=== PATIENT | female | born 1960 | race Caucasian/White ===

== ENCOUNTER → 2016-12-09 | Day surgery (SDC) | payer OTHER ==
[2016-12-01 14:56] VITALS: Ht 154.9 cm; Wt 70.0 kg
[~2016-12-09] VITALS: Ht 154.9 cm; Wt 70.0 kg
[~2016-12-09] MED LIST: AMIT50TA3 PO; ASPI81TA28 PO; ATOR-24 PO; ATROPINE SULFATE 0.1 MG/ML 5ML SYR IV PRN; BUPIVACAINE 0.5 % 5 MG/1 ML PF 10ML VIAL ONE; CEFAZOLIN 1000MG/55 ML D5W IV SCH; CYAN10005 PO; EpHEDrine SULFATE INJ 50 MG/ML AMP IV PRN; FENTANYL CITRATE INJ 50 MCG/1 ML 2 ML VIAL ONE; FLUMAZENIL 0.1 MG/1 ML 10 ML VIAL IV ONE; HYDR-5688 PO; LACTATED RINGER'S 1000ML 1,000 ML IV SCH; LIDOCAINE HCL 1% 20 ML VIAL ONE; LIDOCAINE HCL 2% 2 ML VIAL (20MG/ML) ONE; MIDAZOLAM HCL 1 MG/ML 2ML VIAL ONE; NAPR250T2 PO; OMEP40CA PO; ONDANSETRON INJ 2 MG/ML 2 ML VIAL IV PRN; OXYCODONE/ACETAMINOPHEN 5-325 TAB PO PRN; PROM25TA9 PO; PROPOFOL IV EMULSION 10 MG/ML 20 ML VIAL IV ONE; SODIUM CHLORIDE 0.9% 1000ML 1,000 ML IV SCH
--- NOTE | 2016-12-09 06:42 | History & Physical Bridge - [place] ---
H&P Re-Evaluation Bridge Note: I have examined the patient, reviewed the History & Physical and in the interval since the performance of the History & Physical I have noted the following changes of clinical significance: No changes noted
[2016-12-09 07:15] VITALS: TEMP 36.7
--- NOTE | 2016-12-09 07:15 | [facility] Post Operative Brief Note ---
Immediate Operative Summary Operative Date Dec 09, 2016. Pre-Operative Diagnosis Left Carpal Tunnel Syndrome, Left Ring Trigger Finger Post-Operative Diagnosis Same Procedure(s) Performed Left Carpal Tunnel Release; Left Ring Trigger Finger Release Surgeon Dr. Reuben De Dios Rn Rehabilitation Surgeon(s) Corina Vieira PA-C Estimated Blood Loss 0 Findings ABOVE Specimens None Drains NONE Anesthesia LOCAL IV SEDATION Complication(s) None Disposition
--- NOTE | 2016-12-09 07:19 | Discharge Instructions-SurgCtr ---
Discharge Instructions Visit Reason for Visit: Left Carpal Tunnel Syndrome, Left Ring Trigger Fin Discharge Discharge Diagnosis / Problem: SAME ABOVE Discharge Goals Goal(s): Decrease discomfort, Improve function Activity Recommendations Activity Limitations: as noted below Lifting Limitations: until after follow-up appointment Exercise/Sports Limitations: until after follow-up appointment Shower/Bathe: keep incision dry Anesthesia . Post Anesthesia Instructions: If you have had General Anesthesia or IV Sedation: * Do not drive today. * Resume driving when surgeon permits. * Do not make important decisions or sign legal documents today. * Call surgeon for: 1. Temperature elevations greater than 101 degrees F. 2. Uncontrollable pain. 3. Excessive bleeding. 4. Persistent nausea and vomiting. 5. Medication intolerance (nausea, vomiting or rash). * For nausea and vomiting use only clear liquids such as: tea, soda, bouillon until nausea subsides, then gradually increase diet as tolerated. * If you have any concerns or questions, call your surgeon's office. If physician is unavailable and it is an emergency, call 911 or go to the nearest emergency room. . Instructions / Follow-Up Instructions / Follow-Up MEDICATIONS: * Resume previous medications unless instructed otherwise by your surgeon. * Always take pain medication on a full stomach or with food to avoid upset stomach. * Do not drink alcohol or drive while taking narcotics. * Ibuprofen or Tylenol may be taken if narcotic not needed. SPECIAL CARE INSTRUCTIONS: __ None _X_ Keep extremity elevated and iced x 48 hours; apply ice 20-30 minutes 8-10 times/day. May remove at night. __ Sling __24 hrs/day __ Remove at night __ Shoulder Immobilizer __ 24 hrs/day __ Remove at night _X_ Dressing _X_ Maintain until seen in office, may shower with plastic over site __ Remove dressings in 24-48 hours and then may shower __ Cover incisions with band-aids after showering __ Do not remove steri-strips Call physician if chills or temperature rises above 102 degrees or pain unrelieved by prescribed pain medications at . . Diet Recommendations Home Diet: resume previous diet Procedures Procedures Performed: Left Carpal Tunnel Release; Left Ring Trigger Finger Release Pending Studies Studies pending at discharge: no Medical Emergencies . Who to Call and When: Medical Emergencies: If at any time you feel your situation is an emergency, please call 911 immediately. . Non-Emergent Contact Non-Emergency issues call your: Primary Care Provider . . "Provider Documentation" section prepared by Israel Vieira.
--- NOTE | 2016-12-09 07:30 | OPERATIVE REPORT ---
DATE OF OPERATION: 12/09/2016 PREOPERATIVE DIAGNOSIS: Left carpal tunnel syndrome with left ring finger trigger finger. POSTOPERATIVE DIAGNOSIS: Same. PROCEDURE: Release of transverse carpal ligament, decompression median nerve, left wrist with also release of A1 tima, left ring finger. SURGEON: Dr. De Dios. EMBOSSED OR IMPRESSED LETTERING PAINTER: Israel Vieira PA-C. ANESTHESIOLOGIST: Dr. Stroud. ANESTHESIA: Local with IV sedation. DRAINS: None. COMPLICATIONS: None. CONDITION: The patient tolerated the procedure well and returned to recovery in apparent satisfactory condition. INDICATIONS FOR SURGERY: Annalise is a 56-year-old female who presents with left carpal tunnel complaints and triggering of the ring finger elected to go ahead and proceed with surgery. Procedure, expected outcomes, side effects, and risks were all explained in detail. PROCEDURE: The patient was taken to the OR at which time she was placed supine on operating room table and was prepped and draped in usual sterile fashion for surgery. We exsanguinated the hand and put a forearm tourniquet up to 250 mmHg. We first made a transverse incision over the A1 tima of the ring finger, dissected down with loupe magnification. We divided the A1 tima with the 15 blade and tenotomy scissors. We took the finger through a range of motion, no longer triggering. We irrigated it and closed the incision with 4-0 nylon sutures. Marcaine without epinephrine was placed in the skin edges. Attention was given into the carpal tunnel. The left hand was prepped and draped in the usual sterile fashion for this surgery. The anticipated incision site was infiltrated with 1% Xylocaine. A forearm tourniquet was placed on the arm and tourniquet was placed up to 250 mmHg. Incision was made vertically over the transverse carpal tunnel ligament. Dissection was done down until the palmar fascia was identified and divided with a 15-blade. The transverse carpal ligament was identified and also divided with the 15-blade and upbiting scissors. A small portion of the forearm fascia was divided also. Electrocautery was used to control any areas of bleeding. The nerve was freed up from any scar tissue and adequately decompressed. The wound then was copiously irrigated. It was closed then with interrupted 4-0 nylon sutures. Marcaine without Epinephrine was placed in the skin edges. It was closed in a layered fashion. We placed a sterile dressing of Xeroform, 4 x 4, volar splint, and an Tacho bandage. DISPOSITION: The patient was returned back to the recovery room in apparent satisfactory condition. I attest to the content of the Intraoperative Record and any orders documented therein. Any exceptio ns are noted below.
--- NOTE | 2016-12-09 07:31 | Anesthesia Progress Nt - [facility] ---
Anesthesia Post Op Note Date & Time Dec 09, 2016 at 07:30 Vital Signs Pain Intensity: 0 Vital Signs Past 12 Hours Date Time Temp Pulse Resp B/P Pulse Ox O2 Delivery O2 Flow Rate FiO2 12/09/16 07:15 36.7 82 16 139/89 98 Room Air 12/09/16 06:28 36.9 99 16 174/95 100 Room Air Notes Mental Status: alert / awake / arousable, participated in evaluation Pt Amnestic to Procedure: Yes Nausea / Vomiting: adequately controlled Pain: adequately controlled Airway Patency, RR, SpO2: stable & adequate BP & HR: stable & adequate Hydration State: stable & adequate Anesthetic Complications: no major complications apparent
[2016-12-09 07:41] VITALS: BP 143/88; PULSE 86; O2SAT 98
== END | disposition home or self-care (01) ==
LOC: X.SURG 06:06
PROVIDERS: ATTEND Orthopaedic Surgery
DX: G56.02 Carpal tunnel syndrome, left upper limb (principal); M65.342 Trigger finger, left ring finger; Z98.890 Other specified postprocedural states; Z68.29 Body mass index [BMI] 29.0-29.9, adult

== ENCOUNTER → 2017-02-10 | Day surgery (SDC) | payer OTHER ==
[2017-02-05 09:03] VITALS: Ht 154.9 cm; Wt 70.9 kg
[~2017-02-10] VITALS: Ht 154.9 cm; Wt 70.9 kg
[~2017-02-10] MED LIST changes: -ATOR-24 PO; -CYAN10005 PO; +DEXAMETHASONE SOD INJ 4 MG/ML VIAL ONE; -EpHEDrine SULFATE INJ 50 MG/ML AMP IV PRN; +FENTANYL CITRATE INJ 50 MCG/1 ML 2 ML VIAL IV PRN; -FLUMAZENIL 0.1 MG/1 ML 10 ML VIAL IV ONE; +ONDANSETRON INJ 2 MG/ML 2 ML VIAL ONE
--- NOTE | 2017-02-10 09:09 | [facility] Post Operative Brief Note ---
Immediate Operative Summary Operative Date Feb 10, 2017. Pre-Operative Diagnosis Right Carpal Tunnel Syndrome, Trigger Fingers Right Long And Ring Fingers Post-Operative Diagnosis Same Procedure(s) Performed Right Carpal Tunnel Release, Right Long And Ring Trigger Finger Releases Surgeon Dr. De Dios Churn Driller Surgeon(s) Corina Vieira PA-C Estimated Blood Loss 0 mL Findings ABOVE Specimens None Anesthesia LOCAL IV SEDATION Complication(s) None Disposition
--- NOTE | 2017-02-10 09:12 | Discharge Instructions-SurgCtr ---
Discharge Instructions Date of Service Feb 10, 2017. Visit Reason for Visit: Right Carpal Tunnel, Right Long & Ring Trigger Fin Discharge Discharge Diagnosis / Problem: SAME ABOVE Discharge Goals Goal(s): Decrease discomfort, Improve function Activity Recommendations Activity Limitations: as noted below Lifting Limitations: until after follow-up appointment Exercise/Sports Limitations: until after follow-up appointment Shower/Bathe: keep incision dry Anesthesia . Post Anesthesia Instructions: If you have had General Anesthesia or IV Sedation: * Do not drive today. * Resume driving when surgeon permits. * Do not make important decisions or sign legal documents today. * Call surgeon for: 1. Temperature elevations greater than 101 degrees F. 2. Uncontrollable pain. 3. Excessive bleeding. 4. Persistent nausea and vomiting. 5. Medication intolerance (nausea, vomiting or rash). * For nausea and vomiting use only clear liquids such as: tea, soda, bouillon until nausea subsides, then gradually increase diet as tolerated. * If you have any concerns or questions, call your surgeon's office. If physician is unavailable and it is an emergency, call 911 or go to the nearest emergency room. . Instructions / Follow-Up Instructions / Follow-Up MEDICATIONS: * Resume previous medications unless instructed otherwise by your surgeon. * Always take pain medication on a full stomach or with food to avoid upset stomach. * Do not drink alcohol or drive while taking narcotics. * Ibuprofen or Tylenol may be taken if narcotic not needed. SPECIAL CARE INSTRUCTIONS: __ None _X_ Keep extremity elevated and iced x 48 hours; apply ice 20-30 minutes 8-10 times/day. May remove at night. __ Sling __24 hrs/day __ Remove at night __ Shoulder Immobilizer __ 24 hrs/day __ Remove at night _X_ Dressing _X_ Maintain until seen in office, may shower with plastic over site __ Remove dressings in 24-48 hours and then may shower __ Cover incisions with band-aids after showering __ Do not remove steri-strips Call physician if chills or temperature rises above 102 degrees or pain unrelieved by prescribed pain medications at . . Diet Recommendations Home Diet: resume previous diet Procedures Procedures Performed: Right Carpal Tunnel Release, Right Long And Ring Trigger Finger Releases Pending Studies Studies pending at discharge: no Medical Emergencies . Who to Call and When: Medical Emergencies: If at any time you feel your situation is an emergency, please call 911 immediately. . Non-Emergent Contact Non-Emergency issues call your: Primary Care Provider . . "Provider Documentation" section prepared by Israel Vieira.
[2017-02-10 09:43] VITALS: TEMP 37
--- NOTE | 2017-02-10 09:44 | OPERATIVE REPORT ---
DATE OF OPERATION: 02/10/2017 PREOPERATIVE DIAGNOSES: 1. Right carpal tunnel syndrome. 2. Right long trigger finger. POSTOPERATIVE DIAGNOSES: Same. PROCEDURES: 1. Decompression and median nerve release, transverse carpal ligament, right wrist. 2. Release of A1 tima of right long and right ring fingers. SURGEON: Dr. Elliott De Dios. PACKAGE CHECKER: Israel Vieira PA-C. ANESTHESIOLOGIST: Dr. Coronado. ANESTHESIA: Local with IV sedation. DRAINS: None. COMPLICATIONS: None. CONDITION: The patient tolerated the procedure well and returned to recovery in apparent satisfactory condition. INDICATIONS FOR SURGERY: Annalise is a 56-year-old female who has had right carpal tunnel complaints and triggering of the right long and ring fingers. She would like to go ahead and proceed with surgery to correct these problems. Procedure, expected outcomes, side effects, and risks were all explained in the office. DESCRIPTION OF PROCEDURE: The patient was taken to the OR, at which time she was placed supine on the operating table, put to sleep and given IV sedation by the anesthesia department. Right hand was prepped and draped in usual sterile fashion for surgery. The anticipated incision site was infiltrated with 1% Xylocaine. A forearm tourniquet was placed on the arm and tourniquet was placed up to 250 mmHg. Incision was made vertically over the transverse carpal tunnel ligament. Dissection was done down until the palmar fascia was identified and divided with a 15-blade. The transverse carpal ligament was identified and also divided with the 15-blade and upbiting scissors. A small portion of the forearm fascia was divided also. Electrocautery was used to control any areas of bleeding. The nerve was freed up from any scar tissue and adequately decompressed. I went ahead and made transverse incisions over the A1 pulleys of the long and ring fingers, dissected down with loupe magnification and divided the A1 pulleys. The wound then was copiously irrigated. It was closed then with interrupted 4-0 nylon sutures and then it was incorporated into a postop dressing for the carpal tunnel. Marcaine without Epinephrine was placed in the skin edges. It was closed in a layered fashion. We placed a sterile dressing of Xeroform, 4 x 4, volar splint, and an Tacho bandage. DISPOSITION: The patient was returned back to the recovery room in apparent satisfactory condition. I attest to the content of the Intraoperative Record and any orders documented therein. Any exceptio ns are noted below.
[2017-02-10 10:16] VITALS: BP 143/95; PULSE 91; O2SAT 97
--- NOTE | 2017-02-10 10:26 | Anesthesia Progress Nt - [facility] ---
Anesthesia Post Op Note Date & Time Feb 10, 2017 at 10:26 Vital Signs Pain Intensity: 0 Vital Signs Past 12 Hours Date Time Temp Pulse Resp B/P Pulse Ox O2 Delivery O2 Flow Rate FiO2 02/10/17 10:16 91 16 143/95 97 Room Air 02/10/17 09:43 37.0 90 14 132/88 95 Room Air 02/10/17 09:15 36.8 107 18 154/85 94 Room Air 02/10/17 07:36 37 96 16 145/95 99 Room Air Notes Mental Status: alert / awake / arousable, participated in evaluation Pt Amnestic to Procedure: Yes Nausea / Vomiting: adequately controlled Pain: adequately controlled Airway Patency, RR, SpO2: stable & adequate BP & HR: stable & adequate Hydration State: stable & adequate Anesthetic Complications: no major complications apparent
== END | disposition home or self-care (01) ==
LOC: X.SURG 07:19
PROVIDERS: ATTEND Orthopaedic Surgery
DX: G56.01 Carpal tunnel syndrome, right upper limb (principal); M65.331 Trigger finger, right middle finger; M65.341 Trigger finger, right ring finger; Z98.890 Other specified postprocedural states; Z79.82 Long term (current) use of aspirin; Z68.30 Body mass index [BMI] 30.0-30.9, adult

== ENCOUNTER 2019-08-16 17:23 | Inpatient (IN) ==
[2019-08-16] MEDS ORDERED: SODIUM CHLORIDE 0.9% 1000ML 1,000 ML IV ONE (19:07)
[2019-08-16] MEDS ORDERED: ONDANSETRON INJ 2 MG/ML 2 ML VIAL IV STA (19:07)
--- NOTE | 2019-08-16 19:31 | XRay Report ---
XR chest 1V portable CLINICAL HISTORY: weakness, abd pain COMPARISON STUDY: Chest radiograph April 20, 2018. FINDINGS: Lung volumes are normal. Lungs are clear. There is no pneumothorax or pleural effusion. Car diac size is normal. Mediastinal contours are normal. There is no evidence for pulmonary edema. IMPRESSION: No acute cardiopulmonary findings. Electronically signed by: Darin Boston M.D. 08/16/2019 7:29 PM
[2019-08-16 19:55] LABS: Basophils # (auto) 0.02 K/uL (0-0.2); Basophils % (auto) 0.4 %; Eosinophils # (auto) 0.06 K/uL (0-0.5); Eosinophils % (auto) 1.1 %; Lymphocytes # (auto) 1.89 K/uL (1.2-3.4); Lymphocytes % (auto) 34.1 %; Mean Corpuscular Hemoglobin 29.9 pg (25-34); Mean Corpuscular Hgb Conc 34.8 g/dL (32-36); Mean Corpuscular Volume 85.8 fL (80-100); Mean Platelet Volume 9.3 fL (7.4-10.4); Monocytes % (auto) 7.2 %; Neutrophils # (auto) 3.17 K/uL (1.4-6.5); Neutrophils % (auto) 57.2 %; Platelet Count 178 K/uL (130-400); RDW Standard Deviation 40.6 fL (36.4-46.3); Red Blood Count 5.36 M/uL (4.2-5.4); White Blood Count 5.54 K/uL (4.8-10.8)
[2019-08-16] MEDS: DiphenhydrAMINE HCL 50 MG/ML VIAL IV STA ×2 (19:55→20:15)
[2019-08-16] MEDS ORDERED: CETIRIZINE HCL 10 MG TABLET PO ONE (20:05)
[2019-08-16 20:18] LABS: Alanine Aminotransferase 36 U/L (12-78); Albumin Level 4.1 gm/dl (3.4-5.0); Aspartate Aminotransferase 27 U/L (15-37); BUN Creatinine Ratio 12.3 (10-20); Blood Urea Nitrogen 13 mg/dl (7-18); Calcium 9.9 mg/dl (8.5-10.1); Carbon Dioxide 26 mmol/L (21-32); Chloride 106 mmol/L (98-107); Creatinine Clr Calc Pharmacy 51.2 ml/min; Est GFR (African American) 64.8; Est GFR (Non-African American) 55.9; Glucose 95 mg/dl (70-99); Lipase 70 U/L (73-393); Potassium 3.4 mmol/L (3.5-5.1); Sodium 141 mmol/L (136-145)
[2019-08-16 20:23] LABS: Albumin Globulin Ratio 1.3 (0.9-2); Alkaline Phosphatase 101 U/L (45-117); Bilirubin,Total 0.7 mg/dl (0.2-1); Globulin 3.3 gm/dl (2.5-4.0); Total Protein 7.4 gm/dl (6.4-8.2); Troponin I < 0.015 ng/ml (0-0.045)
[2019-08-16] MEDS ORDERED: IOVERSOL 100ml IV PRN (20:26)
--- NOTE | 2019-08-16 21:15 | CT Scan Report ---
CT OF THE ABDOMEN AND PELVIS WITH CONTRAST CLINICAL HISTORY: Right lower quadrant abdominal pain, nausea and vomiting. COMPARISON STUDY: Abdominal ultrasound October 09, 2016. TECHNIQUE: Following IV administration of 89 mL of Optiray-320, axial images of the abdomen and pelvi s were obtained from the lung bases to the proximal femurs. Images were reviewed in the axial, sagitt al, and coronal planes. IV contrast was administered without complication. Automated exposure contro l was utilized for the study. A dose lowering technique was utilized adhering to the principles of A GENE. CT DOSE: 517.21 mGy.cm FINDINGS: Lung bases are unremarkable. A 3.2 cm cystic lesion within the upper pole of the left kidne y contains a thin septation. This is likely benign. There is probable fatty infiltration of the liver . There is no biliary ductal dilatation status post cholecystectomy. The spleen, adrenal glands and p ancreas are normal. Note is made of a 3 mm left renal calculus. There are no ureteral calculi. No joaquin dence for a bowel obstruction. The tip of the appendix is mildly dilated, measuring 8 mm. There is mi nimal periappendiceal infiltration. There is no free air or abscess. No suspicious osseous lesions ar e present. There is no lymphadenopathy. Major vasculature is patent. IMPRESSION: Findings suggestive of early acute appendicitis. No free air or abscess. Electronically signed by: Darin Boston M.D. 08/16/2019 9:14 PM
[2019-08-16 21:32] LABS: Appearance Urine Clear (Clear); Bacteria Urine Automated Negative (Negative); Bilirubin Urine Negative (Negative); Blood Urine Negative (Negative); Color Urine Yellow; Glucose Urine UA Negative (Negative); Ketones Urine Negative (Negative); Leukocyte Esterase Urine 1+ (Negative); Nitrite Urine Negative (Negative); Protein Urine Negative (Negative); RBC Urine Automated 0-4 /hpf (0-4); Specific Gravity Urine 1.024 (1.000-1.030); Urobilinogen Urine Negative (Negative); pH Urine 6.5 (4.5-7.5)
[2019-08-16] MEDS ORDERED: MoRPHine SULFATE 4 MG/ML 1 ML CARP\\VIAL IV STA (22:49)
[2019-08-16] MEDS ORDERED: D5W AND LACTATED RINGERS 1,000 ML IV SCH (23:00)
[2019-08-16] MEDS: POTASSIUM CHLORIDE 20 MEQ TABCR PO STA ×2 (23:03→23:06)
[2019-08-16] MEDS ORDERED: POTASSIUM CHLORIDE / WTR 10 MEQ/100 ML PLCT IV ONE (23:12)
--- NOTE | 2019-08-16 23:12 | History & Physical Report ---
Date of Service August 16, 2019 Assessment & Plan (1) Abdominal pain: Early appendicitis on CT No sepsis for now. Hypokalemia secondary to transient diarrheal illness hypertension, elevated secondary discomfort and anxiety, currently not on any maintenance medications migraine, stable hx sarcoidosis OBS GMF Surgery consult RE appendicitis (ER provider already in touch with Dr. Jain. No emergent surgical intervention for now.) IV Ertapenem Replace potassium Monitor BP, initiate lisinopril if persistently elevated analgesia, anxiolytic as needed Prophylaxis. SCDs Full code History of Present Illness Chief Complaint: Abdominal pain Primary Care Provider: Elliott Marquis MD History obtained from patient and records. Medical history significant for hypertension, migraine, osteoarthritis, GERD, anxiety, sarcoidosis. Few days history of achy right lower quadrant pain, nausea, anorexia, transient diarrhea, transient hematuria, some chills no fever. No chest pain, S OB. Patient seen at PCP's office. Subsequently directed to the ER for further evaluation. 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 Allergies Allergy/AdvReac Type Severity Reaction Status Date / Time Iodinated Contrast Media Allergy Intermediate ITCHING Verified 08/16/19 19:47 Home Medications Home Medications Medication Instructions Recorded Confirmed Type aspirin 81 mg PO DAILY 08/16/19 08/16/19 History atorvastatin 40 mg PO DAILY 08/16/19 08/16/19 History pantoprazole 40 mg PO BID 08/16/19 08/16/19 History Past Med/Surg History Medical History Stage 3b chronic kidney disease Social History Preferred Language: Uzbek Communication Ability: Effective Mechanical 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: No Beliefs That Will Affect Care: None Current Living Situation: Spouse Other Information That Helps Us Care for You: No Feels Safe at Home: Yes Safety Concerns: Feels Safe At This Time Smoking Status: Never smoker Do You Dip or Chew Tobacco: No ; Second Hand Exposure: No ; Tobacco Cessation Education Requested by Patient: No Hx Alcohol Use: No Hx Substance Use: No Review of Systems Review of Systems: As per HPI, all 10 systems reviewed, all other ROS negative Physical Exam Physical Exam: GENERAL: Slightly anxious, slightly uncomfortable, obese, no respiratory distress SKIN: Normal color, warm HEENT: Bespectacled, [place] palpebral conjunctivae, no ptosis, dry buccal mucosa NECK : Supple, no tenderness CHEST : CTA, no tenderness HEART : RRR, no obvious murmurs ABDOMEN: Some distention, RLQ tenderness EXTREMITIES : No LE swelling/tenderness, no other conspicuous deformities noted NEUROLOGIC : Coherent, no facial asymmetry, no other gross focality Results & Data Vital Signs (Past 12 Hours) Vital Signs Temp Pulse Pulse Resp BP BP Pulse Ox 08/16/19 22:34 83 18 165/97 H 99 08/16/19 20:15 89 18 162/87 H 99 08/16/19 19:17 86 16 159/86 H 98 08/16/19 17:44 36.7 C 97 H 18 172/112 H 99 Laboratory Results Laboratory Results WBC 5.54 K/uL (4.8-10.8) 08/16/19 19:09 RBC 5.36 M/uL (4.2-5.4) 08/16/19 19:09 Hgb 16.0 g/dL (12.0-16.0) 08/16/19 19:09 Hct 46.0 % (37-47) 08/16/19 19:09 MCV 85.8 fL (80-100) 08/16/19 19:09 MCH 29.9 pg (25-34) 08/16/19 19:09 MCHC 34.8 g/dL (32-36) 08/16/19 19:09 RDW Std Deviation 40.6 fL (36.4-46.3) 08/16/19 19:09 RDW Coeff of Charis 13.0 % (11.5-14.5) 08/16/19 19: Plt Count 178 K/uL (130-400) 08/16/19 19:09 MPV 9.3 fL (7.4-10.4) 08/16/19 19:09 Immature Gran % (Auto) 0.0 % 08/16/19 19:09 Neut % (Auto) 57.2 % 08/16/19 19:09 Lymph % (Auto) 34.1 % 08/16/19 19:09 [place] % (Auto) 7.2 % 08/16/19 19:09 Eos % (Auto) 1.1 % 08/16/19 19:09 Baso % (Auto) 0.4 % 08/16/19 19:09 Immature Gran # (Auto) 0.00 K/uL (0.00-0.02) 08/16/19 19:09 Neut # (Auto) 3.17 K/uL (1.4-6.5) 08/16/19 19:09 Lymph # (Auto) 1.89 K/uL (1.2-3.4) 08/16/19 19:09 [place] # (Auto) 0.40 K/uL (0.11-0.59) 08/16/19 19:09 Eos # (Auto) 0.06 K/uL (0-0.5) 08/16/19 19:09 Baso # (Auto) 0.02 K/uL (0-0.2) 08/16/19 19:09 Sodium 141 mmol/L (136-145) 08/16/19 19:09 Potassium 3.4 mmol/L (3.5-5.1) L 08/16/19 19:09 Chloride 106 mmol/L (98-107) 08/16/19 19:09 Carbon Dioxide 26 mmol/L (21-32) 08/16/19 19:09 Anion Gap 9.0 (3-11) 08/16/19 19:09 BUN 13 mg/dl (7-18) 08/16/19 19:09 Creatinine 1.09 mg/dl (0.6-1.2) 08/16/19 19:09 Est Cr Clr Drug Dosing 51.2 ml/min 08/16/19 19:09 Est GFR ( Amer) 64.8 08/16/19 19:09 Est GFR (Non-Af Amer) 55.9 08/16/19 19:09 BUN/Creatinine Ratio 12.3 (10-20) 08/16/19 19:09 Glucose 95 mg/dl (70-99) 08/16/19 19:09 Calcium 9.9 mg/dl (8.5-10.1) 08/16/19 19:09 Total Bilirubin 0.7 mg/dl (0.2-1) 08/16/19 19:09 AST 27 U/L (15-37) 08/16/19 19:09 ALT 36 U/L (12-78) 08/16/19 19:09 Alkaline Phosphatase 101 U/L (45-117) 08/16/19 19:09 Troponin I < 0.015 ng/ml (0-0.045) 08/16/19 19:09 Troponin I Cancelled 08/16/19 19:09 Total Protein 7.4 gm/dl (6.4-8.2) 08/16/19 19:09 Albumin 4.1 gm/dl (3.4-5.0) 08/16/19 19:09 Globulin 3.3 gm/dl (2.5-4.0) 08/16/19 19:09 Albumin/Globulin Ratio 1.3 (0.9-2) 08/16/19 19:09 Lipase 70 U/L (73-393) L 08/16/19 19:09 Urine Color Yellow 08/16/19 20:45 Urine Appearance Clear (Clear) 08/16/19 20:45 Urine pH 6.5 (4.5-7.5) 08/16/19 20:45 Ur Specific [place] 1.024 (1.000-1.030) 08/16/19 20:45 Urine Protein Negative (Negative) 08/16/19 20:45 Urine Glucose (UA) Negative (Negative) 08/16/19 20:45 Urine Ketones Negative (Negative) 08/16/19 20:45 Urine Blood Negative (Negative) 08/16/19 20:45 Urine Nitrite Negative (Negative) 08/16/19 20:45 Urine Bilirubin Negative (Negative) 08/16/19 20:45 Urine Urobilinogen Negative (Negative) 08/16/19 20:45 Ur Leukocyte Esterase 1+ (Negative) H 08/16/19 20:45 Urine WBC (Auto) 1-5 /hpf (0-5) 08/16/19 20:45 Urine RBC (Auto) 0-4 /hpf (0-4) 08/16/19 20:45 U Hyaline Cast (Auto) 1-5 /lpf (0-5) 08/16/19 20:45 U Epithel Cells (Auto) 10-20 /lpf (0-5) H 08/16/19 20:45 Urine Bacteria (Auto) Negative (Negative) 08/16/19 20:[address] abdomen pelvis: Findings suggestive of early acute appendicitis. No free air or abscess. Chest x-ray : No acute cardiopulmonary findings EKG as per my interpretation : Rate 80, NSR, normal axis, incomplete RBBB, T wave flattening inferior and anteroseptal leads (1) Abdominal pain Abdominal location: unspecified location Qualified Code(s): R10.9 - Unspecified abdominal pain
[2019-08-16 23:14] LABS: Magnesium 2.2 mg/dl (1.8-2.4)
[2019-08-16] MEDS ORDERED: ERTAPENEM SODIUM 10 ML IV STA (23:23)
--- NOTE | 2019-08-17 00:24 | Emergency Department Note ---
Entered by Annalise Carpenter acting as a scribe for Salvador Garcia M.D. History of Present Illness General Chief complaint: Abdominal Pain Stated complaint: RLQ PAIN, NAUSEA, DIARRHEA History of Present Illness Provider complaint: right sided abdominal pain Onset (ago): day(s) 3 Location: abdomen and right Pain Consistency: + other (worsening) Maximum Pain Intensity: 9 Associated symptoms: + denies other symptoms (vomiting, recent travel, sick contact, falls, recent antibiotics use), + fever/chills (up to 102 F) and + other (diarrhea which has caused her to lose 15lbs, nausea, ); no chest pain and no cough Treatments prior to arrival: none The patient is a 59 year old female who presents to the ED with complaints of worsening right sided abdominal pain that started 3 days ago. The patient states that she has been having fevers that have gotten as high as 102 F. The patient states that she is nauseas and has been having diarrhea. The patient notes that she has lost 15 lbs secondary to the diarrhea. The patient denies cough, chest pain, recent travel, sick contact, vomiting, falls, and recent antibiotic use. The patient denies receiving any treatments prior to arrival. Home Medications Home Medications Medication Instructions Recorded Confirmed Type aspirin 81 mg PO DAILY 08/16/19 08/16/19 History atorvastatin 40 mg PO DAILY 08/16/19 08/16/19 History pantoprazole 40 mg PO BID 08/16/19 08/16/19 History Allergies Allergy/AdvReac Type Severity Reaction Status Date / Time Iodinated Contrast Media Allergy Intermediate ITCHING Verified 08/16/19 19:47 Past Med/Surg History Medical History Stage 3b chronic kidney disease Social History Preferred Language: Palestinian Feels Safe at Home: Yes Smoking Status: Never smoker Review of Systems See HPI for pertinent positives & negatives. and A total of 10 systems reviewed and were otherwise negative Physical Exam Vital Signs Vital Signs - 24 hr 08/16/19 17:44 08/16/19 19:17 08/16/19 19:18 Temperature 36.7 C Temperature Source Oral Sepsis Recent Fever Within 48 Hours No Sepsis New/Unexplained Change in Mental Status No Sepsis Action Taken by Nursing No Action Required Pulse Rate 97 H Pulse Rate [Apical] 86 Respiratory Rate 18 16 Respiratory Effort / Characteristics Non-Labored Spontaneous Non-Labored Spontaneous Respiratory Depth Normal Normal Respiratory Pattern Regular Blood Pressure 172/112 H Blood Pressure [Left Arm] 159/86 H Blood Pressure Mean 132 Blood Pressure Mean [Left Arm] 110 Blood Pressure Position Sitting Blood Pressure Position [Left Arm] Pulse Oximetry 99 98 Oxygen Delivery Method Room Air Room Air Room Air 08/16/19 20:15 08/16/19 22:34 08/17/19 00:09 Temperature 36.8 C Temperature Source Oral Sepsis Recent Fever Within 48 Hours Sepsis New/Unexplained Change in Mental Status Sepsis Action Taken by Nursing Pulse Rate Pulse Rate [Apical] 89 83 85 Respiratory Rate 18 18 18 Respiratory Effort / Characteristics Non-Labored Spontaneous Non-Labored Spontaneous Non-Labored Spontaneous Respiratory Depth Normal Normal Normal Respiratory Pattern Regular Regular Regular Blood Pressure Blood Pressure [Left Arm] 162/87 H 165/97 H 147/95 H Blood Pressure Mean Blood Pressure Mean [Left Arm] 112 119 112 Blood Pressure Position Blood Pressure Position [Left Arm] Lying Lying Lying Pulse Oximetry 99 99 99 Oxygen Delivery Method Room Air Room Air Room Air 08/17/19 00:19 Temperature Temperature Source Sepsis Recent Fever Within 48 Hours Sepsis New/Unexplained Change in Mental Status Sepsis Action Taken by Nursing Pulse Rate Pulse Rate [Apical] Respiratory Rate Respiratory Effort / Characteristics Respiratory Depth Respiratory Pattern Blood Pressure Blood Pressure [Left Arm] Blood Pressure Mean Blood Pressure Mean [Left Arm] Blood Pressure Position Blood Pressure Position [Left Arm] Pulse Oximetry Oxygen Delivery Method Room Air GENERAL: Awake, alert, uncomfortable-appearing on litter HENT: Normocephalic, atraumatic. EYES: Normal conjunctiva. Sclera non-icteric. NECK: Supple. No nuchal rigidity. RESPIRATORY: Clear to auscultation. Normal respiratory effort. CARDIAC: Normal rate. Normal rhythm. Extremities warm and well perfused. GI: Soft, non-distended. Moderate right sided abdominal tenderness to palpation to R flank. No masses. RECTAL: Deferred. MUSCULOSKELETAL: Atraumatic. Chest examination reveals no tenderness. LOWER EXTREMITIES: Calves are equal size bilaterally and non-tender. NEURO: Normal sensorium. No sensory or motor deficits noted. No facial droop. SKIN: Warm and dry. No rash or jaundice noted. Course 1904: Past medical records reviewed. The patient was evaluated in room B11. A complete history and physical exam was performed. 2133: I updated the patient on the test results. I informed her on the plan for admission and she verbally agrees and understands. 2153: I discussed the patient's case with Dr. Fred Gomez. He will evaluate the patient's current condition. 0: I discussed the patient's case with [facility]. He will evaluate the patient for further management. Consultations Consultation #1: I discussed the patient's case with Dr. Fred Gomez. He will evaluate the patient's current condition. Time: 21:54 Consultation #2: I discussed the patient's case with [facility]. He will evaluate the patient for further management. Time: 22:20 Administered Medications Ioversol (Optiray 320 100ml) 91 ml IV ONCE PRN PRN Reason: Interaction Checking Stop: 08/20/19 20:25 Last Admin: 08/16/19 20:27 Dose: 91 ml Documented by: [id number] Discontinued Medications Cetirizine HCl (Zyrtec) 10 mg PO NOW ONE Stop: 08/16/19 20:06 Last Admin: 08/16/19 20:15 Dose: 10 mg Documented by: [id number] Diphenhydramine HCl (Benadryl) 25 mg IV NOW STA Stop: 08/16/19 19:08 Last Admin: 08/16/19 20:15 Dose: Not Given Documented by: [id number] Sodium Chloride (Nss 1000ml) 1,000 mls @ 999 mls/hr IV .Q1H1M ONE Stop: 08/16/19 20:07 Last Infusion: 08/16/19 21:08 Dose: 0 mls/hr Documented by: [id number] Admin: 08/16/19 19:55 Dose: 999 mls/hr Documented by: [id number] Potassium Chloride (K Sherwin / Wtr) 10 meq in 100 mls @ 100 mls/hr IV ONE ONE Stop: 08/17/19 00:11 Last Admin: 08/16/19 23:28 Dose: 100 mls/hr Documented by: [id number] Morphine Sulfate (Morphine Sulfate) 4 mg IV NOW STA Stop: 08/16/19 22:50 Last Admin: 08/16/19 23:03 Dose: 4 mg Documented by: [id number] Ondansetron HCl (Zofran) 4 mg IV NOW STA Stop: 08/16/19 19:08 Last Admin: 08/16/19 19:55 Dose: 4 mg Documented by: [id number] Potassium Chloride (Klor-Con M20) 40 meq PO NOW STA Stop: 08/16/19 22:20 Last Admin: 08/16/19 23:06 Dose: Not Given Documented by: [id number] Medical Decision Making Differential Diagnosis Differential diagnosis: Etiologies such as biliary colic, cholecystitis, hepatitis, perihepatitis, pancreatitis, cardiac disease, pancreatitis, gastritis, peptic ulcer disease, appendicitis, ovarian cyst, ovarian torsion, ectopic , pelvic inflammatory disease, cystitis, diverticulitis, mesenteric ischemia, inflammatory bowel disease, ileus, bowel obstruction, aortic pathology, shingles, as well as others were considered. Medical Records Attestation: I reviewed the patient's medical records. Home Medications Current Medication List: was personally reviewed by me Laboratory Data Attestation: I reviewed the patient's lab results. Result diagrams: 08/16/19 19:09 08/16/19 19:09 Lab Results 08/16/19 08/16/19 08/16/19 Range/Units 19:09 19:09 19:09 WBC 5.54 (4.8-10.8) K/uL RBC 5.36 (4.2-5.4) M/uL Hgb 16.0 (12.0-16.0) g/dL Hct 46.0 (37-47) % MCV 85.8 (80-100) fL MCH 29.9 (25-34) pg MCHC 34.8 (32-36) g/dL RDW Std Deviation 40.6 (36.4-46.3) fL RDW Coeff of Charis 13.0 (11.5-14.5) % Plt Count 178 (130-400) K/uL MPV 9.3 (7.4-10.4) fL Immature Gran % (Auto) 0.0 % Neut % (Auto) 57.2 % Lymph % (Auto) 34.1 % [place] % (Auto) 7.2 % Eos % (Auto) 1.1 % Baso % (Auto) 0.4 % Immature Gran # (Auto) 0.00 (0.00-0.02) K/uL Neut # (Auto) 3.17 (1.4-6.5) K/uL Lymph # (Auto) 1.89 (1.2-3.4) K/uL [place] # (Auto) 0.40 (0.11-0.59) K/uL Eos # (Auto) 0.06 (0-0.5) K/uL Baso # (Auto) 0.02 (0-0.2) K/uL Sodium 141 (136-145) mmol/L Potassium 3.4 L (3.5-5.1) mmol/L Chloride 106 (98-107) mmol/L Carbon Dioxide 26 (21-32) mmol/L Anion Gap 9.0 (3-11) BUN 13 (7-18) mg/dl Creatinine 1.09 (0.6-1.2) mg/dl Est Cr Clr Drug Dosing 51.2 ml/min Est GFR ( Amer) 64.8 Est GFR (Non-Af Amer) 55.9 BUN/Creatinine Ratio 12.3 (10-20) Glucose 95 (70-99) mg/dl Calcium 9.9 (8.5-10.1) mg/dl Magnesium 2.2 (1.8-2.4) mg/dl Total Bilirubin 0.7 (0.2-1) mg/dl AST 27 (15-37) U/L ALT 36 (12-78) U/L Alkaline Phosphatase 101 (45-117) U/L Troponin I < 0.015 Cancelled (0-0.045) ng/ml Total Protein 7.4 (6.4-8.2) gm/dl Albumin 4.1 (3.4-5.0) gm/dl Globulin 3.3 (2.5-4.0) gm/dl Albumin/Globulin Ratio 1.3 (0.9-2) Lipase 70 L (73-393) U/L Urine Color Urine Appearance (Clear) Urine pH (4.5-7.5) Ur Specific [place] (1.000-1.030) Urine Protein (Negative) Urine Glucose (UA) (Negative) Urine Ketones (Negative) Urine Blood (Negative) Urine Nitrite (Negative) Urine Bilirubin (Negative) Urine Urobilinogen (Negative) Ur Leukocyte Esterase (Negative) Urine WBC (Auto) (0-5) /hpf Urine RBC (Auto) (0-4) /hpf U Hyaline Cast (Auto) (0-5) /lpf U Epithel Cells (Auto) (0-5) /lpf Urine Bacteria (Auto) (Negative) 08/16/19 Range/Units 20:45 WBC (4.8-10.8) K/uL RBC (4.2-5.4) M/uL Hgb (12.0-16.0) g/dL Hct (37-47) % MCV (80-100) fL MCH (25-34) pg MCHC (32-36) g/dL RDW Std Deviation (36.4-46.3) fL RDW Coeff of Charis (11.5-14.5) % Plt Count (130-400) K/uL MPV (7.4-10.4) fL Immature Gran % (Auto) % Neut % (Auto) % Lymph % (Auto) % [place] % (Auto) % Eos % (Auto) % Baso % (Auto) % Immature Gran # (Auto) (0.00-0.02) K/uL Neut # (Auto) (1.4-6.5) K/uL Lymph # (Auto) (1.2-3.4) K/uL [place] # (Auto) (0.11-0.59) K/uL Eos # (Auto) (0-0.5) K/uL Baso # (Auto) (0-0.2) K/uL Sodium (136-145) mmol/L Potassium (3.5-5.1) mmol/L Chloride (98-107) mmol/L Carbon Dioxide (21-32) mmol/L Anion Gap (3-11) BUN (7-18) mg/dl Creatinine (0.6-1.2) mg/dl Est Cr Clr Drug Dosing ml/min Est GFR ( Amer) Est GFR (Non-Af Amer) BUN/Creatinine Ratio (10-20) Glucose (70-99) mg/dl Calcium (8.5-10.1) mg/dl Magnesium (1.8-2.4) mg/dl Total Bilirubin (0.2-1) mg/dl AST (15-37) U/L ALT (12-78) U/L Alkaline Phosphatase (45-117) U/L Troponin I (0-0.045) ng/ml Total Protein (6.4-8.2) gm/dl Albumin (3.4-5.0) gm/dl Globulin (2.5-4.0) gm/dl Albumin/Globulin Ratio (0.9-2) Lipase (73-393) U/L Urine Color Yellow Urine Appearance Clear (Clear) Urine pH 6.5 (4.5-7.5) Ur Specific [place] 1.024 (1.000-1.030) Urine Protein Negative (Negative) Urine Glucose (UA) Negative (Negative) Urine Ketones Negative (Negative) Urine Blood Negative (Negative) Urine Nitrite Negative (Negative) Urine Bilirubin Negative (Negative) Urine Urobilinogen Negative (Negative) Ur Leukocyte Esterase 1+ H (Negative) Urine WBC (Auto) 1-5 (0-5) /hpf Urine RBC (Auto) 0-4 (0-4) /hpf U Hyaline Cast (Auto) 1-5 (0-5) /lpf U Epithel Cells (Auto) 10-20 H (0-5) /lpf Urine Bacteria (Auto) Negative (Negative) Imaging Data Radiologist's Impression: Radiology results as stated below per my review and the radiologist's interpretation: XR chest 1V portable CLINICAL HISTORY: weakness, abd pain COMPARISON STUDY: Chest radiograph April 20, 2018. FINDINGS: Lung volumes are normal. Lungs are clear. There is no pneumothorax or pleural effusion. Cardiac size is normal. Mediastinal contours are normal. There is no evidence for pulmonary edema. IMPRESSION: No acute cardiopulmonary findings. Electronically signed by: Darin Boston M.D. 08/16/2019 7:[address] OF THE ABDOMEN AND PELVIS WITH CONTRAST CLINICAL HISTORY: Right lower quadrant abdominal pain, nausea and vomiting. COMPARISON STUDY: Abdominal ultrasound October 09, 2016. TECHNIQUE: Following IV administration of 89 mL of Optiray-320, axial images of the abdomen and pelvis were obtained from the lung bases to the proximal femurs. Images were reviewed in the axial, sagittal, and coronal planes. IV contrast was administered without complication. Automated exposure control was utilized for the study. A dose lowering technique was utilized adhering to the principles of ALARA. CT DOSE: 517.21 mGy.cm FINDINGS: Lung bases are unremarkable. A 3.2 cm cystic lesion within the upper pole of the left kidney contains a thin septation. This is likely benign. There is probable fatty infiltration of the liver. There is no biliary ductal dilatation status post cholecystectomy. The spleen, adrenal glands and pancreas are normal. Note is made of a 3 mm left renal calculus. There are no ureteral calculi. No evidence for a bowel obstruction. The tip of the appendix is mildly dilated, measuring 8 mm. There is minimal periappendiceal infiltration. There is no free air or abscess. No suspicious osseous lesions are present. There is no lymphadenopathy. Major vasculature is patent. IMPRESSION: Findings suggestive of early acute appendicitis. No free air or abscess. Electronically signed by: Darin Boston M.D. 08/16/2019 9:14 PM ECG Data Attestation: I personally reviewed and interpreted this ECG as follows: Indication: abdominal pain Rate (beats per minute): 82 Rhythm: normal sinus Findings: + other (nonspecific T-wave changes); no PVC and no ST elevation Blood Pressure Blood Pressure Findings: Elevated blood pressure Blood Pressure Disposition: further management by hospitalist NITIN Narrative Patient is a 59-year-old female with a past medical history including CKD and prior cholecystectomy presenting to the emergency department today referred by her primary care provider complaining of right abdominal pain with nausea fever and fatigue since Thursday. Afebrile upon arrival here. Hypertensive. No sick contacts. Significant amount of diarrhea noted. No recent antibiotics. Stool culture and C. difficile testing ordered. Basic labs are completed without evidence of acute hepatitis pancreatitis. EKG and chest x-ray as well as troponin without signs of acute cardiac injury evidence of pneumonia pneumothorax. Doubt dissection. Doubt PE. No evidence of nephrolithiasis on CT. Prior cholecystectomy. No evidence of acute pancreatitis or hepatitis. CT abdomen pelvis completed IV contrast with some Zyrtec to help with symptoms as she did drive here. Given a small amount of fentanyl later for pain. CT scan shows concerning findings for early appendicitis although story is odd. Discussed with general surgery who evaluated the patient. Agree with Dr. Jain's assessment with other clinical history, holding on OR and monito ring overnight in hospital is very reasonable. [facility] hospitalist was alerted. Impression & Plan Diarrhea, Abdominal pain Discharge Plan Visit Data Chief Complaint: Abdominal Pain Stated Complaint: RLQ PAIN, NAUSEA, DIARRHEA ED Provider: Salvador Garcia Discharge Problem: Diarrhea, Abdominal pain Patient Disposition: Being Evaluated by Hospitalist Discharge Instructions Interventions: ED Discharge Assessment Last Done: 08/17/19 00:19 Forms Stand Alone Forms: Call Back Authorization, [employer] Prescriptions Prescriptions: No Action atorvastatin 40 mg tablet 40 mg PO DAILY RF: 0 aspirin 81 mg Tablet,Delayed Release (Dr/Ec) 81 mg PO DAILY RF: 0 pantoprazole 40 mg tablet,delayed release (DR/EC) 40 mg PO BID RF: 0 Referrals Referrals: Elliott Marquis MD [Primary Care Provider] - The scribe's documentation has been prepared under my direction and personally reviewed by me in its entirety. I confirm that the note above accurately reflects all work, treatment, procedures, and medical decision making performed by me.
[2019-08-17] MEDS ORDERED: LORazepam 0.25 MG/0.5 ML VIAL IV PRN (00:51)
[2019-08-17] MEDS ORDERED: PROMETHAZINE HCL 12.5 MG in SODIUM CHLORIDE 0.9% 50 ML IV PRN (00:51)
[2019-08-17] MEDS ORDERED: TRAMADOL HCL 50 MG TABLET PO PRN (00:51)
[2019-08-17] MEDS ORDERED: ACETAMINOPHEN 325 MG TAB PO PRN (00:51)
[2019-08-17] MEDS ORDERED: MoRPHine SULFATE 4 MG/ML 1 ML CARP\\VIAL IV PRN ×2 (00:51→14:46)
[2019-08-17] MEDS ORDERED: TRAMADOL HCL 50 MG TABLET ONE (01:05)
[2019-08-17 05:28] LABS: Basophils # (auto) 0.01 K/uL (0-0.2); Basophils % (auto) 0.2 %; Eosinophils # (auto) 0.07 K/uL (0-0.5); Eosinophils % (auto) 1.4 %; Hemoglobin 14.2 g/dL (12.0-16.0); Lymphocytes % (auto) 45.1 %; Mean Corpuscular Hemoglobin 29.9 pg (25-34); Mean Corpuscular Hgb Conc 34.6 g/dL (32-36); Mean Corpuscular Volume 86.3 fL (80-100); Mean Platelet Volume 9.4 fL (7.4-10.4); Monocytes % (auto) 10.2 %; Neutrophils % (auto) 43.1 %; Platelet Count 165 K/uL (130-400); Red Blood Count 4.75 M/uL (4.2-5.4); White Blood Count 4.88 K/uL (4.8-10.8)
[2019-08-17 05:53] LABS: BUN Creatinine Ratio 10.3 (10-20); Calcium 8.8 mg/dl (8.5-10.1); Creatinine Clr Calc Pharmacy 57.6 ml/min; Est GFR (African American) 74.6; Est GFR (Non-African American) 64.4; Potassium 3.4 mmol/L (3.5-5.1)
--- NOTE | 2019-08-17 06:54 | Surgery Consultation ---
Date of Consultation August 17, 2019 Assessment & Plan (1) Acute abdominal pain in right upper quadrant: At this time I discussed the situation with Dr. Trotter in the ER physician the patient may certainly have us an early appendicitis but given her history which is 4 days long and no real pinpoint tenderness and minimal findings on CAT scan and laboratory I recommended that the patient be admitted and watched. She has not had anything to eat or eat since Thursday she has not had any thing to drink and last 24hours. The plans of therapy were discussed in details with the patient and she is in agreeable there is no family members or significant others at the bedside she said that her went home to go to sleep Present on Admission?: Yes History of Present Illness Reason for Consultation: Was asked to see Annalise by the ER physician laid on 08/16/2019 for findings of possible appendicitis The patient had had a CAT scan which showed an 8 mm appendix with faint so- stranding tissue normal white count The patient's symptoms started on Thursday where she had diarrhea and also experienced some abdominal pain following days with food localized to the right abdomen and right flank she denies any chills or fever Attending Physician: Luis Armando Whalen MD Allergies Allergy/AdvReac Type Severity Reaction Status Date / Time Iodinated Contrast Media Allergy Intermediate ITCHING Verified 08/16/19 19:47 Home Medications Home Medications Medication Instructions Recorded Confirmed Type aspirin 81 mg PO DAILY 08/16/19 08/16/19 History atorvastatin 40 mg PO DAILY 08/16/19 08/16/19 History pantoprazole 40 mg PO BID 08/16/19 08/16/19 History Patient History Medical History Stage 3b chronic kidney disease Social History Preferred Language: Qatari Communication Ability: Effective 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 Required: No Beliefs That Will Affect Care: None Current Living Situation: Spouse Other Information That Helps Us Care for You: No Feels Safe at Home: Yes Safety Concerns: Feels Safe At This Time Smoking Status: Never smoker Do You Dip or Chew Tobacco: No ; Second Hand Exposure: No ; Tobacco Cessation Education Requested by Patient: No Hx Alcohol Use: No Hx Substance Use: No Review of Systems Constitutional: as per Subjective / HPI Eyes: as per Subjective / HPI Cardiovascular: as per Subjective / HPI Gastrointestinal: As stated in the present complaints Physical Exam Constitutional: WD/WN, vitals as above well developed and well nourished Eyes: PERRL, conjunctivae normal, anicteric sclerae ENMT: external ear and nose normal, oropharynx normal Neck: trachea midline, no thyromegaly Respiratory: normal respiratory effort, lungs clear to auscultation Cardiovascular: RRR, no murmur, no edema Gastrointestinal (Abdomen): Abdomen is benign previous scar lower midline hysterectomy trocar sites were lap sukhdev appreciated the abdomen is soft not distended there is no localized tenderness in the right lower quadrant on deep palpation the patient may have more discomfort in the right lower quadrant although it extends more in the right flank area also Results & Data Vital Signs (Past 12 Hours) Vital Signs Temp Pulse Pulse Resp BP Pulse Ox 08/17/19 02:19 71 140/89 08/17/19 00:57 76 180/92 H 08/17/19 00:45 36.6 C 78 18 191/99 H 96 08/17/19 00:09 36.8 C 85 18 147/95 H 99 08/16/19 22:34 83 18 165/97 H 99 08/16/19 20:15 89 18 162/87 H 99 08/16/19 19:17 86 16 159/86 H 98 PG Care Time/CCT Total # of Minutes Spent Total Time Spent with Patient: Total time spent is greater than 50% in coordination of care (as documented) at patient's floor/unit and/or counseling patient:
[2019-08-17] MEDS ORDERED: D5W AND 1/2NSS 1,000 ML IV SCH (07:30)
--- NOTE | 2019-08-17 07:38 | Surgery Progress Note ---
Date of Service August 17, 2019 Assessment & Plan (1) Acute abdominal pain in right upper quadrant: 08/17/19 plan for lap appy possible open since symp for appendicitis increased r and c explained to pt will proceed later this am or early afternoon At this time I discussed the situation with Dr. Trotter in the ER physician the patient may certainly have us an early appendicitis but given her history which is 4 days long and no real pinpoint tenderness and minimal findings on CAT scan and laboratory I recommended that the patient be admitted and watched. She has not had anything to eat or eat since Thursday she has not had any thing to drink and last 24hours. The plans of therapy were discussed in details with the patient and she is in agreeable there is no family members or significant others at the bedside she said that her went home to go to sleep Subjective nauseated and needed something for pain Physical Exam Constitutional: WD/WN, vitals as above Gastrointestinal (Abdomen): pain more localized in rlq tender to deep palpation Results & Data Vital Signs (Past 12 Hours) Vital Signs Temp Pulse Pulse Resp BP Pulse Ox 08/17/19 02:19 71 140/89 08/17/19 00:57 76 180/92 H 08/17/19 00:45 36.6 C 78 18 191/99 H 96 08/17/19 00:09 36.8 C 85 18 147/95 H 99 08/16/19 22:34 83 18 165/97 H 99 08/16/19 20:15 89 18 162/87 H 99 PG Care Time/CCT Total # of Minutes Spent Total Time Spent with Patient: Total time spent is greater than 50% in coordination of care (as documented) at patient's floor/unit and/or counseling patient:
--- NOTE | 2019-08-17 08:10 | Hospitalist Progress Note ---
Date of Service August 17, 2019 Assessment & Plan (1) Abdominal pain: -Early appendicitis on CT -continue empiric Ertapenem -NPO -awaiting for general surgeon for appendectomy Mild Hypokalemia -admission serum potassium is 3.4 -Hypokalemia secondary to transient diarrheal illness Hypertension -elevated secondary to discomfort and anxiety, currently not on any maintenance medications -blood pressure improved by AM of 08/17/19, continue to monitor blood pressures -holding aspirin and statin for now while awaiting surgery History of migraines -no headache currently History of sarcoidosis DVT Prophylaxis: SCDs Full code [id number] Subjective Patient seen and examined around 8 AM. Patient is not in distress. She had received pain medication and tolerating right sided abdominal discomfort. She reports that General Surgeon planning for her to go to the operating room today. no chest pain. no shortness of breath. does not appear to be nauseous at this time. no headache. no dizziness. Physical Exam Constitutional: WD/WN, vitals as above Eyes: PERRL, conjunctivae normal, anicteric sclerae EOM intact bilaterally ENMT: external ear and nose normal, oropharynx normal Neck: normal visual inspection Respiratory: normal respiratory effort, lungs clear to auscultation Cardiovascular: RRR, no murmur, no edema Gastrointestinal (Abdomen): Inspection/Auscultation: normal bowel sounds Percussion/Palpation: abdomen soft Musculoskeletal: Head/Neck/Chest: normocephalic and head atraumatic Neurologic: PERRL, EOMI, accommodation nl, no face palsy, no dysarthria CN's II-XI intact bilaterally Psychiatric: A+Ox3, euthymic affect Results & Data Vital Signs (Past 12 Hours) Vital Signs Temp Pulse Pulse Resp BP Pulse Ox 08/17/19 07:46 36.6 C 68 18 155/97 H 96 08/17/19 02:19 71 140/89 08/17/19 00:57 76 180/92 H 08/17/19 00:45 36.6 C 78 18 191/99 H 96 08/17/19 00:09 36.8 C 85 18 147/95 H 99 08/16/19 22:34 83 18 165/97 H 99 08/16/19 20:15 89 18 162/87 H 99 (1) Abdominal pain Abdominal location: unspecified location Qualified Code(s): R10.9 - Unspecified abdominal pain
[2019-08-17] MEDS: ONDANSETRON INJ 2 MG/ML 2 ML VIAL IV PRN ×2 (08:30→15:28)
[2019-08-17] MEDS ORDERED: ATORVASTATIN 40 MG TAB PO SCH (09:00)
[2019-08-17] MEDS ORDERED: PANTOprazole 40 MG TAB PO SCH (09:00)
[2019-08-17] MEDS ORDERED: ASPIRIN 81 MG ECTAB PO SCH (09:00)
[2019-08-17] MEDS ORDERED: ERTAPENEM CONSULT ACTIVE PRN (09:00)
--- NOTE | 2019-08-17 11:09 | Anesthesiology Consultation ---
Date of Service August 17, 2019 Assessment & Plan (1) Encounter for pre-operative examination: Chart Review Chart Review: Acceptable Risk for Surgery History Surgery Operation Date: 08/17/19 07:00 Proposed Procedures p Laparoscopic Appendectomy - Den Jain MD Height/Weight Height: 5 ft 1 in Weight: 72.7 kg Allergies Allergy/AdvReac Type Severity Reaction Status Date / Time Iodinated Contrast Media Allergy Intermediate ITCHING Verified 08/16/19 19:47 Medications Home Medications Medication Instructions Recorded Confirmed Last Taken aspirin 81 mg PO DAILY 08/16/19 08/16/19 Unknown atorvastatin 40 mg PO DAILY 08/16/19 08/16/19 Unknown pantoprazole 40 mg PO BID 08/16/19 08/16/19 Unknown Active Medications Generic Name Dose Route Start Last Admin Trade Name Freq PRN Reason Stop Dose Admin Dextrose/Sodium Chloride 1,000 mls @ 60 mls/hr 08/17/19 07:30 08/17/19 11:20 D5w And 1/2nss IV 09/16/19 07:29 0 mls/hr .[id number] JASMINE Infusion Morphine Sulfate 4 mg 08/17/19 00:51 08/17/19 08:30 Morphine Sulfate IV 08/31/19 00:50 4 mg Q4H PRN Administration Pain Ondansetron HCl 4 mg 08/17/19 08:13 08/17/19 08:30 Zofran IV 09/16/19 08:12 4 mg Q6H PRN Administration Nausea Tramadol HCl 25 - 50 mg 08/17/19 00:51 08/17/19 06:05 Ultram PO 09/16/19 00:50 50 mg Q4H PRN Administration Pain NPO Date Last Intake of Fluids: 08/17/19 Time Last Intake of Fluids: 00:35 Date Last Intake of Solids: 08/17/19 Time Last Intake of Solids: 00:35 Past Medical History Medical History Stage 3b chronic kidney disease Past Surgical History Surgical History H/O section Hx of fracture of ankle Hx of hysterectomy Social History Smoking Status: Never smoker Do You Dip or Chew Tobacco: No Hx Alcohol Use: No Hx Substance Use: No Physical Exam Vital Signs Last Vital Signs Temp 36.6 C 08/17/19 07:46 Pulse 68 08/17/19 07:46 Resp 18 08/17/19 07:46 BP 155/97 H 08/17/19 07:46 Pulse Ox 96 08/17/19 07:46 Testing Laboratory Results 08/17/19 05:09 08/17/19 05:09 Urine Color Yellow 08/16/19 20:45 Urine Appearance Clear (Clear) 08/16/19 20:45 Urine pH 6.5 (4.5-7.5) 08/16/19 20:45 Ur Specific [place] 1.024 (1.000-1.030) 08/16/19 20:45 Urine Protein Negative (Negative) 08/16/19 20:45 Urine Glucose (UA) Negative (Negative) 08/16/19 20:45 Urine Ketones Negative (Negative) 08/16/19 20:45 Urine Nitrite Negative (Negative) 08/16/19 20:45 Ur Leukocyte Esterase 1+ (Negative) H 08/16/19 20:45 Urine WBC (Auto) 1-5 /hpf (0-5) 08/16/19 20:45 Urine RBC (Auto) 0-4 /hpf (0-4) 08/16/19 20:45 U Hyaline Cast (Auto) 1-5 /lpf (0-5) 08/16/19 20:45 U Epithel Cells (Auto) 10-20 /lpf (0-5) H 08/16/19 20:45 Urine Bacteria (Auto) Negative (Negative) 08/16/19 20:45 Electrocardiogram Date: 08/16/19 Findings: + NSR @ (82) and + T wave inversion (anterior) No change from prior Chest X-Ray Date: 08/16/19 Findings: + NAD
[2019-08-17] MEDS ORDERED: LIDOCAINE/EPINEPHRINE 1% 20 ML VIAL ONE (11:12)
[2019-08-17] MEDS ORDERED: fentaNYL citrate 100 MCG/2 ML VIAL ONE ×2 (11:15→12:05)
[2019-08-17] MEDS ORDERED: ONDANSETRON INJ 2 MG/ML 2 ML VIAL IV PRN (11:35)
[2019-08-17] MEDS ORDERED: ATROPINE SULFATE 0.1 MG/ML 10ML SYR IV PRN (11:35)
[2019-08-17] MEDS ORDERED: LABETALOL HCL IV 5 MG/ML 20ML IV PRN (11:35)
[2019-08-17] MEDS ORDERED: HYDROmorphone INJ 0.5 MG/0.5 ML SYR IV PRN (11:35)
[2019-08-17] MEDS ORDERED: LIDOCAINE HCL 2% 2 ML VIAL/AMP(20MG/ML) INFIL ONE (12:01)
[2019-08-17] MEDS ORDERED: GLYCOPYRROLATE 0.2 MG/ML VIAL ONE (12:01)
[2019-08-17] MEDS ORDERED: ONDANSETRON INJ 2 MG/ML 2 ML VIAL ONE (12:01)
[2019-08-17] MEDS ORDERED: NEOSTIGMINE METHYLSULFATE 5 MG/5 ML SYR ONE (12:01)
[2019-08-17] MEDS ORDERED: PROPOFOL IV EMULSION 10 MG/ML 20 ML VIAL IV ONE (12:01)
[2019-08-17] MEDS ORDERED: DEXAMETHASONE SOD INJ 4 MG/ML VIAL ONE (12:01)
[2019-08-17] MEDS ORDERED: ROCURONIUM BROMIDE 10 MG/ML 5 ML VIAL ONE (12:55)
--- NOTE | 2019-08-17 13:08 | Post Operative Brief Note ---
PG Immediate Post Op with CF Date of Surgery August 17, 2019 Pre & Post Diagnosis Operation Date: 08/17/19 07:00 Pre-Op Diagnosis: APPENDICITIS Post-Op Diagnosis: APPENDICITIS cecal irregularity Procedure Operation Date: 08/17/19 07:00 Actual Procedures p Laparoscopic Appendectomy - Den Jain MD wedge biopsy cecum Surgeon Den Jain MD Chemists jose luis MONROE Estimated Blood Loss 25 Findings Consistent with Post-Op Diagnosis Specimens Specimen Description: A) Appendix B) Biopsy of cecum
--- NOTE | 2019-08-17 13:17 | Operative Report ---
PG Post Operative Report Pre & Post Diagnosis Operation Date: 08/17/19 07:00 Pre-Op Diagnosis: APPENDICITIS Post-Op Diagnosis: APPENDICITIS Cecal irregularity Procedure Operation Date: 08/17/19 07:00 Actual Procedures p Laparoscopic Appendectomy - Den Jain MD Biopsy of the cecum the patient was brought into the operating room theater supine position the abdomen was prepped Betadine solution properly draped timeout was had systemic antibiotics been given patient was identified small incision was made supraumbilically dissected down to the fascia elevated the fascia with Manny clamps small opening in the fascia was made 0 Vicryl suture was used to stay sutures we entered the peritoneal cavity with a hemostat followed by 5 mm trocar CO2 insufflated slowly 3 L a minute after we had enough pneumoperitoneum the camera was inserted we are able to identify that the patient had no adhesions in the right upper quadrant or right lower quadrant we could see the cecum and appear grossly normal from this view then under direct visualization with preemptive local analgesic placed a 5 mm right subcostal port we that we elevated the cecum could not identify the appendix except for his base appeared grossly normal however as we rotated the fascia slightly to the left I can see on top of the cecum and ascending aspect medially there was an area about 5 cm long irregular appeared edematous almost friable nature although did not appear to be such not sure exactly the was not look like a possibility of one would see his pseudomyxoma but not the typical experience we then looked around this abdomen more by placing the camera right upper quadrant the patient had adhesions from previous hysterectomy lower midline the omentum was free of any evidence of any implantation for any malignancy as was the parietal peritoneum and there was no fluid in the belly at this point I converted the 5 mm umbilical port by placing the camera right upper quadrant and incision was large and large sufficiently that we used a Panora clamp to open up the initial entry site a bit dilating it and then placed a 12 mm trocar stay sutures were used to control the pneumoperitoneum at this point I direct visualization I was placed a 5 mm trocar towards the right lower quadrant in the midline between the symphysis pubis and umbilical area under direct visualization and away from the adhesions with these 2 ports were placed the camera in the left lower area lower abdomen and then was able to elevate the appendix identified a window the base the appendix and the cecum and then I was able to fire a number 8G blue load JORDYN and freed the appendix below the mesoappendix was inflamed and especially edematous there was no fibers and exudate in the it see the tip of the appendix was involved in some fatty tissue I do not see any gross evidence of appendicitis however was we taken down the mesoappendix which was quite thickened but we used a clipper pliers of 5 and 10 mm we had a little bleeding into this mesentery but eventually were able to control completely once the appendix was freed from the attachments we then placed in Endopouch and taken out through the umbilical port we reinserted the 12 mm trocar then suctioned out the right lower quadrant placing the patient reverse Trendelenburg and irrigated significantly there was no evidence of any active bleeding we can see the staple line where the appendix came off and it was away from the terminal ileum and no bleeding at this point the issue was the area that we initially seen as we first went into the cecum I elected just to take a wedge biopsy of this using a purple load which we were able to elevate and we took approximately a centimeter of tissue staple line was intact. Individual trochars were taken out under direct visualization last the umbilical trocar we used 2-0 Vicryl interrupted sutures to approximate the fascia and then 4-0 Monocryl Steri-Strips applied procedure was tolerated well estimated blood loss about 25 cc addendumJose Luis monroe was present throughout the procedure and help to retraction exposure and wound closure Surgeon Den Jain MD [employer]ist jose luis MONROE Estimated Blood Loss 25 Findings Consistent with Post-Op Diagnosis Specimens APPENDIX BIOPSY CECUM Description of Procedure MERDA I attest to the content of the Intraoperative Record and any orders documented therein. Any exceptions are noted below.
--- NOTE | 2019-08-17 14:15 | Anesthesiology Progress Note ---
Date of Service August 17, 2019 Anesthesia Post Procedure Vital Signs Vital Signs: Temp Pulse Pulse Pulse Resp BP BP 08/17/19 14:00 36.2 C L 75 14 152/81 H 08/17/19 13:50 81 14 166/83 H 08/17/19 13:40 79 14 166/97 H 08/17/19 13:30 81 16 177/84 H 08/17/19 13:24 36.4 C L 92 H 16 185/86 H 08/17/19 07:46 36.6 C 68 18 155/97 H 08/17/19 02:19 71 140/89 08/17/19 00:57 76 180/92 H 08/17/19 00:45 36.6 C 78 18 191/99 H 08/17/19 00:09 36.8 C 85 18 147/95 H 08/16/19 22:34 83 18 165/97 H 08/16/19 20:15 89 18 162/87 H 08/16/19 19:17 86 16 159/86 H 08/16/19 17:44 36.7 C 97 H 18 172/112 H Pulse Ox 08/17/19 14:00 97 08/17/19 13:50 98 08/17/19 13:40 100 08/17/19 13:30 100 08/17/19 13:24 100 08/17/19 07:46 96 08/17/19 02:19 08/17/19 00:57 08/17/19 00:45 96 08/17/19 00:09 99 08/16/19 22:34 99 08/16/19 20:15 99 08/16/19 19:17 98 08/16/19 17:44 99 Pain Intensity Abdomen: Pain Intensity: 4 Right Lower Abdomen: Pain Intensity: 8 Transfer of Care Handoff Completed per policy Notes Mental Status: alert / awake / arousable Patient Amnestic to Procedure: Yes Nausea / Vomiting: adequately controlled Pain: adequately controlled Airway Patency, RR, SpO2: stable & adequate BP & HR: stable & adequate Hydration State: stable & adequate Anesthetic Complications: no major complications apparent
[2019-08-17] MEDS ORDERED: OXYCODONE/ACETAMINOPHEN 5mg/325mg TAB PO PRN (14:46)
[2019-08-17] MEDS ORDERED: LACTATED RINGER'S 1,000 ML IV SCH (14:46)
[2019-08-17] MEDS: MoRPHine SULFATE 2 MG/ML CARP IV PRN ×2 (15:24→19:57)
[2019-08-18] MEDS: OXYCODONE/ACETAMINOPHEN 5mg/325mg TAB PO PRN ×2 (00:12→06:03)
[2019-08-18] MEDS ORDERED: ERTAPENEM SODIUM 1,000 MG in SODIUM CHLORIDE 0.9% 50 ML IV SCH (01:00)
[2019-08-18 07:06] LABS: Hematocrit (blood only) 41.1 % (37-47); Hemoglobin 14.2 g/dL (12.0-16.0); Immature Granulocytes # (auto) 0.02 K/uL (0.00-0.02); Immature Granulocytes % (auto) 0.2 %; Lymphocytes # (auto) 1.13 K/uL (1.2-3.4); Lymphocytes % (auto) 10.3 %; Mean Corpuscular Hemoglobin 30.3 pg (25-34); Mean Corpuscular Hgb Conc 34.5 g/dL (32-36); Mean Corpuscular Volume 87.8 fL (80-100); Mean Platelet Volume 9.8 fL (7.4-10.4); Monocytes # (auto) 0.58 K/uL (0.11-0.59); Monocytes % (auto) 5.3 %; Neutrophils # (auto) 9.23 K/uL (1.4-6.5); Neutrophils % (auto) 84.2 %; Platelet Count 191 K/uL (130-400); RDW Coefficient of Variation 13.1 % (11.5-14.5); RDW Standard Deviation 41.5 fL (36.4-46.3); Red Blood Count 4.68 M/uL (4.2-5.4); White Blood Count 10.96 K/uL (4.8-10.8)
[2019-08-18 07:25] VITALS: BP 121/71; TEMP 97.9; O2SAT 93
[2019-08-18 07:59] LABS: Albumin Level 3.4 gm/dl (3.4-5.0); BUN Creatinine Ratio 9.3 (10-20); Bilirubin,Total 0.5 mg/dl (0.2-1); Calcium 9.3 mg/dl (8.5-10.1); Creatinine Clr Calc Pharmacy 48.6 ml/min; Est GFR (African American) 60.7; Est GFR (Non-African American) 52.4; Globulin 3.4 gm/dl (2.5-4.0); Potassium 4.1 mmol/L (3.5-5.1); Total Protein 6.8 gm/dl (6.4-8.2)
--- NOTE | 2019-08-18 08:19 | Surgery Progress Note ---
Date of Service August 18, 2019 Assessment & Plan (1) S/P laparoscopic appendectomy: POD#1 Laparoscopic appendectomy and cecal biopsy Tolerating a diet overnight Will go over cecal biopsy results in clinic Okay for discharge today from surgical standpoint Will ask patient to schedule an appointment in clinic in 7-10days Patient seen and examined with Dr. Jain Subjective Patient feels well overall. Has some expected post surgical pain, but is well managed. She has been ambulating the halls. Physical Exam Physical Exam: awake/alert Constitutional: well developed and well nourished; no acute distress Gastrointestinal (Abdomen): Inspection/Auscultation: + abdominal surgical incision (c/d/i with dry dressing overtop) Results & Data Vital Signs (Past 12 Hours) Vital Signs Temp Pulse Resp BP Pulse Ox 08/18/19 07:21 36.6 C 84 16 121/71 93 08/18/19 03:31 37.1 C 86 16 128/84 91 08/17/19 23:14 37.1 C 94 H 16 141/88 H 91 PG Care Time/CCT Total # of Minutes Spent Total Time Spent with Patient: Total time spent is greater than 50% in coordination of care (as documented) at patient's floor/unit and/or counseling patient:
--- NOTE | 2019-08-18 08:38 | Anesthesiology Progress Note ---
Date of Service August 18, 2019 Anesthesia Post Procedure Vital Signs Vital Signs: Temp Pulse Pulse Pulse Resp BP Pulse Ox 08/18/19 07:21 36.6 C 84 16 121/71 93 08/18/19 03:31 37.1 C 86 16 128/84 91 08/17/19 23:14 37.1 C 94 H 16 141/88 H 91 08/17/19 16:46 36.5 C 97 H 18 148/86 H 96 08/17/19 15:52 36.5 C 90 18 140/82 96 08/17/19 15:32 36.8 C 86 16 139/87 96 08/17/19 14:45 36.6 C 78 14 149/87 H 94 08/17/19 14:15 62 14 148/77 H 98 08/17/19 14:00 36.2 C L 75 14 152/81 H 97 08/17/19 13:50 81 14 166/83 H 98 08/17/19 13:40 79 14 166/97 H 100 08/17/19 13:30 81 16 177/84 H 100 08/17/19 13:24 36.4 C L 92 H 16 185/86 H 100 Pain Intensity Abdomen: Pain Intensity: 6 Right Lower Abdomen: Pain Intensity: 8 Notes Mental Status: alert / awake / arousable and participated in evaluation Patient Amnestic to Procedure: Yes Nausea / Vomiting: adequately controlled Pain: adequately controlled Airway Patency, RR, SpO2: stable & adequate BP & HR: stable & adequate Hydration State: stable & adequate Anesthetic Complications: no major complications apparent and Pt Satisfied with anesthetic care
--- NOTE | 2019-08-18 08:50 | Hospitalist Progress Note ---
Date of Service August 18, 2019 Assessment & Plan (1) Abdominal pain: Abdominal pain from appendicitis, s/p appendectomy with cecal biopsy -Early appendicitis on CT -was given empiric Ertapenem -s/p appendectomy with cecal biopsy on 08/17/19 -Because of diagnosis of appendicitis and patient is s/p appendectomy, the patient is upgraded from observation to full admission -patient tolerated diet after surgery -can be discharged as per general surgery service on 08/18/19 -Patient should follow up with Dr. Den Jain at [facility]. [address] [place] [address] ([phone]). Patient should call to schedule an appointment in clinic in 7- 10days -The general surgery clinic will go over the cecal biopsy results in clinic -primary care doctor follow up 08/23/2019 2:40 PM Provider Elliott Marquis MD Department [facility] for repeat Complete blood count -patient may take acetaminophen 325 mg every 6 hours as needed for pain or fever -[facility] patient was checked and patient last had narcotic medication of 8 day supply last filled on 07/20/2019. Because of recent surgery, patient may take Perocet 1 tablet every 6 hours as need for moderate or severe pain (16 tablets prescribed -patient to take oral antibiotics of ciprofloxacin 500 mg every 12 hours and metronidazole every 8 hours for 7 days -discharge medications sent electronically to [facility] Address: [address] [place] [address] Post-operative Leukocytosis -WBC 10,000 on 08/28/19 -antibiotics Mild Hypokalemia -admission serum potassium is 3.4 -Hypokalemia secondary to transient diarrheal illness -as of 08/18/19, serum potassium is at goal. hypokalemia corrected Hypertension -initial blood pressure prior to surgery for the abdominal pain -blood pressure improved by 08/18/19 -no need for anti-hypertensives on discharge -can resume aspirin and statin History of migraines -no headache currently History of sarcoidosis DVT Prophylaxis: SCDs while inpatient, ambulation Full code [id number] Discharge diagnosis: Abdominal pain from appendicitis, s/p appendectomy with cecal biopsy, Post-operative Leukocytosis, Mild hypokalemia (resolved) Subjective Post-operative Leukocytosis. No fever. Patient tolerated diet overnight. Patient cleared by surgery for discharge. Patient eager to leave and awaiting her family member to pick her up. abdominal pain post-op is controlled. no vomiting. no chest pain. no shortness of breath. no dizziness. no headache. Physical Exam Constitutional: WD/WN, vitals as above Eyes: PERRL, conjunctivae normal, anicteric sclerae EOM intact bilaterally ENMT: external ear and nose normal, oropharynx normal Neck: normal visual inspection Respiratory: normal respiratory effort, lungs clear to auscultation Cardiovascular: RRR, no murmur, no edema Gastrointestinal (Abdomen): Inspection/Auscultation: normal bowel sounds Percussion/Palpation: abdomen soft Musculoskeletal: Head/Neck/Chest: normocephalic and head atraumatic Neurologic: PERRL, EOMI, accommodation nl, no face palsy, no dysarthria CN's II-XI intact bilaterally Psychiatric: A+Ox3, euthymic affect Results & Data Vital Signs (Past 12 Hours) Vital Signs Temp Pulse Resp BP Pulse Ox 08/18/19 07:21 36.6 C 84 16 121/71 93 08/18/19 03:31 37.1 C 86 16 128/84 91 08/17/19 23:14 37.1 C 94 H 16 141/88 H 91 (1) Abdominal pain Abdominal location: unspecified location Qualified Code(s): R10.9 - Unspecified abdominal pain
--- NOTE | 2019-08-18 09:28 | Discharge Summary ---
Date of Service August 18, 2019 Admission HPI Per Admitting Provider History obtained from patient and records. Medical history significant for hypertension, migraine, osteoarthritis, GERD, anxiety, sarcoidosis. Few days history of achy right lower quadrant pain, nausea, anorexia, transient diarrhea, transient hematuria, some chills no fever. No chest pain, S OB. Patient seen at PCP's office. Subsequently directed to the ER for further evaluation. 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 Admission Exam Per Admitting Provider GENERAL: Slightly anxious, slightly uncomfortable, obese, no respiratory distress SKIN: Normal color, warm HEENT: Bespectacled, [place] palpebral conjunctivae, no ptosis, dry buccal mucosa NECK : Supple, no tenderness CHEST : CTA, no tenderness HEART : RRR, no obvious murmurs ABDOMEN: Some distention, RLQ tenderness EXTREMITIES : No LE swelling/tenderness, no other conspicuous deformities noted NEUROLOGIC : Coherent, no facial asymmetry, no other gross focality Principal Diagnosis Abdominal pain from appendicitis, s/p appendectomy with cecal biopsy, Post- operative Leukocytosis, Mild hypokalemia (resolved) Discharge Exam Constitutional WD/WN, vitals as above Eyes PERRL, conjunctivae normal, anicteric sclerae EOM intact bilaterally ENMT external ear and nose normal, oropharynx normal Neck normal visual inspection Respiratory normal respiratory effort, lungs clear to auscultation Cardiovascular RRR, no murmur, no edema Gastrointestinal (Abdomen) Inspection/Auscultation: normal bowel sounds Percussion/Palpation: abdomen soft Musculoskeletal Head/Neck/Chest: normocephalic and head atraumatic Neurologic PERRL, EOMI, accommodation nl, no face palsy, no dysarthria CN's II-XI intact bilaterally Psychiatric A+Ox3, euthymic affect Discharge Data Allergies Allergy/AdvReac Type Severity Reaction Status Date / Time Iodinated Contrast Media Allergy Intermediate ITCHING Verified 08/16/19 19:47 Consultations 08/16/19 22:20 ED Decision to Admit Stat 08/17/19 00:51 Consult General Surgery Routine Procedures Performed Operation Date: 08/17/19 07:00 Actual Procedures p Laparoscopic Appendectomy - Den Jain MD Ordered Studies 08/16/19 19:07 CT abd pelvis IV con only Stat Hospital Course (1) Abdominal pain: Abdominal pain from appendicitis, s/p appendectomy with cecal biopsy -Early appendicitis on CT -was given empiric Ertapenem -s/p appendectomy with cecal biopsy on 08/17/19 -Because of diagnosis of appendicitis and patient is s/p appendectomy, the patient is upgraded from observation to full admission -patient tolerated diet after surgery -can be discharged as per general surgery service on 08/18/19 -Patient should follow up with Dr. Den Jain at [facility]. [address] [place] [address] ([phone]). Patient should call to schedule an appointment in clinic in 7- 10days -The general surgery clinic will go over the cecal biopsy results in clinic -primary care doctor follow up 08/23/2019 2:40 PM Provider Elliott Marquis MD Department [facility] for repeat Complete blood count -patient may take acetaminophen 325 mg every 6 hours as needed for pain or fever -[facility] patient was checked and patient last had narcotic medication of 8 day supply last filled on 07/20/2019. Because of recent surgery, patient may take Perocet 1 tablet every 6 hours as need for moderate or severe pain (16 tablets prescribed -patient to take oral antibiotics of ciprofloxacin 500 mg every 12 hours and metronidazole every 8 hours for 7 days -discharge medications sent electronically to [facility] Address: [address] [place] [address] Post-operative Leukocytosis -WBC 10,000 on 08/28/19 -antibiotics Mild Hypokalemia -admission serum potassium is 3.4 -Hypokalemia secondary to transient diarrheal illness -as of 08/18/19, serum potassium is at goal. hypokalemia corrected Hypertension -initial blood pressure prior to surgery for the abdominal pain -blood pressure improved by 08/18/19 -no need for anti-hypertensives on discharge -can resume aspirin and statin History of migraines -no headache currently History of sarcoidosis DVT Prophylaxis: SCDs while inpatient, ambulation Full code [id number] Discharge diagnosis: Abdominal pain from appendicitis, s/p appendectomy with cecal biopsy, Post-operative Leukocytosis, Mild hypokalemia (resolved) Total Time Total Time Spent Total Time Spent (In Minutes): 40 minutes Total Time Includes: Examination of the Patient, Discharge Planning, Medication Reconciliation and Communication With Other Providers Discharge Plan Discharge Items Patient Disposition: Home - Self-Care Reason For Visit: APPENDICITIS Discharge Diagnosis: Abdominal pain from appendicitis, s/p appendectomy with cecal biopsy, Post- operative Leukocytosis, Mild hypokalemia (resolved) Condition on Discharge: Good Activity: Per Instructions section Non-emergency contact: Primary Care Provider and Surgeon Call non-emergency contact if: you have any medication questions, your symptoms worsen, your pain is worsening, you have a fever, your temperature is above 101.5, your wound has increased redness, your wound has increased drainage and your wound pain has increased Follow-up/Referrals: Den Jain MD [Surgeon] - (Please call to schedule follow up in clinic within 1 week. You may call the office sooner if you have any questions/concerns.) Elliott Marquis MD [Primary Care Provider] - Diet: Regular Addtl Attending Provider Instructions: -Early appendicitis on CT -was given empiric Ertapenem -s/p appendectomy with cecal biopsy on 08/17/19 -Because of diagnosis of appendicitis and patient is s/p appendectomy, the patient is upgraded from observation to full admission -patient tolerated diet after surgery -can be discharged as per general surgery service on 08/18/19 -Patient should follow up with Dr. Den Jain at [facility]. [address] [place] [phone] ([phone]). Patient should call to schedule an appointment in clinic in 7- 10days -The general surgery clinic will go over the cecal biopsy results in clinic -primary care doctor follow up 08/23/2019 2:40 PM Provider Elliott Marquis MD Department [facility] for repeat Complete blood count -patient may take acetaminophen 325 mg every 6 hours as needed for pain or fever -[facility] patient was checked and patient last had narcotic medication of 8 day supply last filled on 07/20/2019. Because of recent surgery, patient may take Perocet 1 tablet every 6 hours as need for moderate or severe pain (16 tablets prescribed -patient to take oral antibiotics of ciprofloxacin 500 mg every 12 hours and metronidazole every 8 hours for 7 days -discharge medications sent electronically to [facility] Address: [address] [place] [address], [place] [address] Pending Studies at Discharge: Yes Studies:: cecal biopsy results Stand-Alone Forms: Call Back Authorization, My [facility] Medications and DC Order Prescriptions: New metronidazole 500 mg Tablet 500 mg PO Q8H 7 Days Qty: 21 RF: 0 ciprofloxacin HCl 500 mg Tablet 500 mg PO Q12H 7 Days Qty: 14 RF: 0 acetaminophen 325 mg tablet 325 mg PO Q6H PRN (Reason: pain or fever) 5 Days Qty: 20 RF: 0 oxycodone-acetaminophen [Percocet] 5-325 mg Tablet 1 tab PO Q6H PRN (Reason: moderate to severe pain) 4 Days Qty: 16 RF: 0 Continued atorvastatin 40 mg tablet 40 mg PO DAILY RF: 0 aspirin 81 mg Tablet,Delayed Release (Dr/Ec) 81 mg PO DAILY RF: 0 pantoprazole 40 mg tablet,delayed release (DR/EC) 40 mg PO BID RF: 0 Discharge Orders: Discharge Order (Routine); Ordered 08/18/19 Ordered By: Sushil Merino Admission Data Admit Date/Time: 08/17/19 16:45 Attending Provider: Sushil Merino Admit Provider: Luis Armando Whalen Primary Care Provider: Elliott Marquis Other Providers: Luis Armando Whalen ; Den Jain
[2019-08-18] MEDS ORDERED: metroNIDAZOLE 500 MG TAB PO SCH (10:00)
[2019-08-18] MEDS ORDERED: CIPROFLOXACIN 500 MG TAB PO SCH (10:00)
[2019-08-18 10:25] VITALS: PULSE 62
== END 2019-08-18 11:23 | disposition home or self-care (01) | DRG 343 ==
LOC: ED 17:23 → 3W 17:23 → SUATTDRO 23:14 → 3W 08-17 00:19

== ENCOUNTER 2024-06-09 09:35 | Inpatient (IN) ==
--- NOTE | 2024-05-06 10:18 | Anesthesiology Consultation ---
Date of Service May 06, 2024 Assessment & Plan (1) Encounter for pre-operative examination: Chart Review Chart Review: Acceptable Risk for Surgery and Patient NOT seen in Pre Admission Testing Consults Requested none History Surgery Operation Date: 05/12/24 07:30 Proposed Procedures p Robotic Laparoscopic Assisted Left Partial Nephrectomy - Reji Au MD Height/Weight Height: 5 ft 1 in Weight: 65.317 kg Allergies Allergy/AdvReac Type Severity Reaction Status Date / Time Iodinated Contrast Media Allergy Intermediate ITCHING Verified 05/04/24 13:37 gabapentin AdvReac Unknown hallucinati Verified 05/04/24 13:37 ons Medications Home Medications Medication Instructions Recorded Confirmed Last Taken trazodone 100 mg tablet 300 mg (3 x 100 mg) PO HS #90 tabs 04/04/24 05/04/24 Unknown oxycodone-acetaminophen 5 mg-325 1 tab PO UD 04/08/24 05/04/24 Unknown mg tablet cyanocobalamin (vitamin B-12) 1,000 mcg IM Q30D #25 mL 04/25/24 05/04/24 Unknown 1,000 mcg/mL injection solution Shower Chair #1 ea 05/04/24 Unknown zolmitriptan 5 mg tablet (Zomig) 5 mg PO UD PRN migraines 05/04/24 05/04/24 Unknown sulfamethoxazole 800 1 tab PO BID #14 tabs 05/05/24 Unknown mg-trimethoprim 160 mg tablet (Bactrim DS) Past Medical History Medical History (Updated 05/06/24 @ 10:17 by Orville Nielsen MD) Encounter for pre-operative examination Stress incontinence Stage 3b chronic kidney disease Lumbar degenerative disc disease Insomnia Low back pain Hx of gastroesophageal reflux (GERD) no issues, no meds History of depression pt denies Vitamin B 12 deficiency Sarcoidosis Hyperlipidemia hx, no longer on meds Hx of renal calculi no sx, passed on it's own Hx of migraine headaches Hypertension hx, no longer on meds Chronic obstructive pulmonary disease "I have the beginning of COPD." History of Holter monitoring ~03/2022, [place], for heart palpitations, "also had a stress test"; no longer f/u cardio. Past Family History Family History Mother Heart disease Myocardial infarction Father Heart disease Myocardial infarction Grandmother (Paternal) Breast cancer Grandmother (Maternal) Cancer Grandfather (Paternal) Myocardial infarction Coronary heart disease Denies family history of Ovarian cancer Prostate cancer Colorectal cancer Past Surgical History Surgical History Hx of cholecystectomy History of hip surgery (09/2022) Right Hip Open Gluteal Tendon and Iliotibial Tendon Repair(Right) - Raad Palomares MD History of hip surgery (06/2022) Bilateral Hip Endoscopic Bursectomy, iliotibial band release (Bilateral) History of esophagogastroduodenoscopy (EGD) Hx of total hysterectomy with removal of both tubes and ovaries History of ankle surgery R ankle, x 3 S/P carpal tunnel release b/l S/P laparoscopic appendectomy (08/18/19) Laparoscopic appendectomy 08/18/19 Dr. Jain: Grade 1 view, MAC 3, ETT 7.0. No postop issues per anesthesia progress note. H/O section x3 Social History Smoking Status: Never smoker Do You Dip or Chew Tobacco: No Hx Alcohol Use: No Hx Substance Use: No substance use type: does not use Testing Laboratory Results Laboratory Tests 12/10/23 03/17/24 09:15 00:00 WBC 3.55 L Hgb 14.5 Hct 44.8 Plt Count 152 Sodium 138 Potassium 4.2 Chloride 105 Carbon Dioxide 30.9 BUN 12.6 Creatinine 1.33 H Glucose 76 Electrocardiogram Date: 05/04/24 HR 66. sinus rhythm. low QRS voltage in chest leads. poor r wave progression. Chest X-Ray Date: 05/04/24 Findings: + NAD
[~2024-06-09 09:35] MED LIST changes: -AMIT50TA3 PO; -ASPI81TA28 PO; -ATROPINE SULFATE 0.1 MG/ML 5ML SYR IV PRN; -BUPIVACAINE 0.5 % 5 MG/1 ML PF 10ML VIAL ONE; -CEFAZOLIN 1000MG/55 ML D5W IV SCH; -DEXAMETHASONE SOD INJ 4 MG/ML VIAL ONE; -FENTANYL CITRATE INJ 50 MCG/1 ML 2 ML VIAL IV PRN; -FENTANYL CITRATE INJ 50 MCG/1 ML 2 ML VIAL ONE; -HYDR-5688 PO; -LACTATED RINGER'S 1000ML 1,000 ML IV SCH; -LIDOCAINE HCL 1% 20 ML VIAL ONE; -LIDOCAINE HCL 2% 2 ML VIAL (20MG/ML) ONE; +LR 15ML/HR IV SCH; -MIDAZOLAM HCL 1 MG/ML 2ML VIAL ONE; -NAPR250T2 PO; -OMEP40CA PO; -ONDANSETRON INJ 2 MG/ML 2 ML VIAL IV PRN; -ONDANSETRON INJ 2 MG/ML 2 ML VIAL ONE; -OXYCODONE/ACETAMINOPHEN 5-325 TAB PO PRN; -PROM25TA9 PO; -PROPOFOL IV EMULSION 10 MG/ML 20 ML VIAL IV ONE; -SODIUM CHLORIDE 0.9% 1000ML 1,000 ML IV SCH; +ceFAZolin 2000MG 2,000 MG/15 ML SYR IV SCH
[2024-06-09] MEDS: LR 15ML/HR IV SCH (10:23)
[2024-06-09] MEDS ORDERED: ePHEDrine sulfate 50 MG/ML AMP IV PRN (11:29)
[2024-06-09] MEDS ORDERED: ATROPINE SULFATE 0.1 MG/ML 10ML SYR IV PRN (11:29)
[2024-06-09] MEDS ORDERED: PROMETHAZINE HCL 6.25 MG in SODIUM CHLORIDE 0.9% 50 ML IV PRN (11:29)
--- NOTE | 2024-06-09 11:41 | History & Physical Report ---
Date of Service June 09, 2024 Assessment & Plan (1) Left flank pain: (2) Renal cyst: Plan We reviewed the plan for robot-assisted partial nephrectomy. We reviewed risks and benefits of the surgery. She expressed understanding and would like to proceed. History of Present Illness Primary Care Provider: Leisa Arenas DO This is a 64-year-old female followed by urology for Bosniak 2F renal cyst on the left kidney as well as ongoing left-sided flank pain. She presents to the OR today for robot-assisted partial nephrectomy. She denies any changes in her health. Allergies Allergy/AdvReac Type Severity Reaction Status Date / Time Iodinated Contrast Media Allergy Intermediate ITCHING Verified 06/09/24 10:01 gabapentin AdvReac Unknown hallucinati Verified 06/09/24 10:01 ons Home Medications Medication Instructions Recorded Confirmed Type oxycodone-acetaminophen 5 mg-325 1 tab PO UD 04/08/24 06/09/24 History mg tablet cyanocobalamin (vitamin B-12) 1,000 mcg IM Q30D #25 mL 04/25/24 06/09/24 Rx 1,000 mcg/mL injection solution Shower Chair #1 ea 05/04/24 05/18/24 Rx zolmitriptan 5 mg tablet (Zomig) 5 mg PO UD PRN migraines #9 tabs 05/10/24 06/09/24 Rx estradiol 0.01% (0.1 mg/gram) 1 g vaginal 3XWK #42.5 grams 05/17/24 06/09/24 Rx vaginal cream (Estrace) nitrofurantoin 100 mg PO Q12H 7 days #14 caps 05/23/24 06/09/24 Rx monohydrate/macrocrystals 100 mg capsule (Macrobid) trazodone 100 mg tablet 300 mg (3 x 100 mg) PO HS #270 tabs 05/25/24 06/09/24 Rx Past Med/Surg History Problem List Left flank pain Depression Overweight (BMI 25.0-29.9) Postmenopausal atrophic vaginitis Iron deficiency B12 deficiency Osteopenia GERD (gastroesophageal reflux disease) Lumbar degenerative disc disease Secondary hyperparathyroidism (of renal origin) Vitamin D deficiency Renal cyst hx Insomnia Migraines HTN (hypertension) HLD (hyperlipidemia) Sarcoidosis (Acute) Stress incontinence in female (Acute) Stage 3b chronic kidney disease Medical History Metatarsalgia, right foot Greater trochanteric bursitis of both hips Tear of left gluteus minimus tendon Tear of right gluteus medius tendon Hip hematoma, right Hx of renal calculi History of Holter monitoring Surgical History Hx of cholecystectomy History of hip surgery (09/2022) History of hip surgery (06/2022) History of esophagogastroduodenoscopy (EGD) Hx of total hysterectomy with removal of both tubes and ovaries History of ankle surgery S/P carpal tunnel release S/P laparoscopic appendectomy (08/18/19) H/O section Family History Mother Heart disease Myocardial infarction Father Heart disease Myocardial infarction Grandmother (Paternal) Breast cancer Grandmother (Maternal) Cancer Grandfather (Paternal) Myocardial infarction Coronary heart disease Denies family history of Ovarian cancer Prostate cancer Colorectal cancer Social History Smoking Status: Never smoker Second Hand Exposure: Yes (hx ex- smoked); Do You Dip or Chew Tobacco: No; Tobacco Cessation Education Requested by Patient: No Hx Alcohol Use: No Hx Substance Use: No Preferred Language: Honduran Communication Ability: Effective Visual Impairment: Limited Hearing Ability: Normal [employer] Worker Required: No Beliefs That Will Affect Care: None marital status: Current Living Situation: Spouse current occupational status: unemployed How many Children do You have: 3 How many Children do You have Comment: one child passed Other Information That Helps Us Care for You: No Feels Safe at Home: Yes Safety Concerns: Feels Safe At This Time Childhood Exposure to Second-Hand Smoke: No Diet: regular caffeine: No during the past year weight has: decreased > 10 lbs Dental Care, Regularly: Yes Physical Activity Frequency: Daily Seatbelt Use: always Sunscreen Use: Yes Assistive Devices: Denture - Upper and Glasses Physical Exam Physical Exam: Well-appearing, NAD Results & Data Vital Signs (Past 12 Hours) Vital Signs Temp Pulse Resp BP Pulse Ox O2 Del Method 06/09/24 10:05 36.6 C 67 20 169/84 H 94 Room Air
[2024-06-09] MEDS ORDERED: MIDAZOLAM HCL 1 MG/ML 2ML VIAL ONE (11:42)
[2024-06-09] MEDS ORDERED: fentaNYL citrate PF 100 MCG/2 ML VIAL ONE (11:42)
[2024-06-09] MEDS: ceFAZolin 2000MG 2,000 MG/15 ML SYR IV SCH (13:16)
[2024-06-09] MEDS ORDERED: hydrALAZINE HCL 20 MG/ML VIAL ONE (13:45)
[2024-06-09] MEDS ORDERED: ROCURONIUM BROMIDE 10 MG/ML 5 ML VIAL IV ONE (14:24)
[2024-06-09] MEDS ORDERED: LIDOCAINE 2% 2 ML VIAL/AMP(20MG/ML) INFIL ONE (14:24)
[2024-06-09] MEDS ORDERED: DEXAMETHASONE SOD INJ 4 MG/ML VIAL ONE (14:24)
[2024-06-09] MEDS ORDERED: PROPOFOL IV EMULSION 10 MG/ML 20 ML VIAL IV ONE (14:24)
[2024-06-09] MEDS: BUPIVACAINE 0.5 % 5 MG/1 ML MPF 30ML VIAL ONE (15:27)
[2024-06-09] MEDS ORDERED: ONDANSETRON INJ 2 MG/ML 2 ML VIAL ONE (15:29)
[2024-06-09] MEDS ORDERED: SUGAMMADEX SODIUM 200 MG/2 ML VIAL IV ONE (15:30)
--- NOTE | 2024-06-09 15:55 | Operative Report ---
PG Post Operative Report Pre & Post Diagnosis Operation Date: 06/09/24 11:50 Pre-Op Diagnosis: Renal Cyst Left, Flank Pain Post-Op Diagnosis: Renal Cyst Left, Flank Pain I identified the patient and participated in the time-out.: Yes Procedure Operation Date: 06/09/24 11:50 Actual Procedures p Robotic Assisted Laparoscopic left renal cyst decortication - Left- Reji Au MD Surgeon Reji Au MD Surgery Scheduling Coordinator TOBI Medina Estimated Blood Loss 20 Findings Consistent with Post-Op Diagnosis Specimens Left renal cyst wall 1 Left renal cyst wall 2 Drains None Anesthesia Type General Complications none Disposition Accompanied Patient To Recovery: Yes Disposition: Recovery Room Indications This is a 64-year-old female followed by urology for renal cyst (Bosniak 2F) as well as left-sided flank pain. She presents the OR today for partial nephrectomy to remove the cyst. Description of Procedure The patient was identified and informed consent was obtained. She was marked on the left side and was brought to the operating room where general anesthesia was initiated. She was placed in a flank position with the left side elevated. All pressure points were carefully padded. A timeout was then performed. A surgical marker was used to draw a line approximately 7 cm to the left of the umbilicus, in the mid clavicular area. Anticipated port sites were marked starting approximately 2 fingerbreadths below the costal margin. Subsequent ports were anticipated to be 6 to 7 cm spaced down this line. An incision was made at the second anticipated site, then dissection was carried down to the fascia. A Veress needle was used to obtain access to the peritoneum. Good position was confirmed with a negative aspiration, appropriate drop test and low opening insufflation pressure. The abdomen was then insufflated with CO2 to 15 mmHg. The first robotic port was then placed and the camera was inserted. The abdominal cavity was surveyed. There was no injury to any intra-abdominal contents. She did not have any significant adhesions. The remaining 3 robotic ports were placed under direct visualization. A 12 mm diversional therapist's assistant port was then placed in the midline above the umbilicus. The robot was then docked. I reflected the colon along the white line of Toldt to expose Gerota's fascia. The colon was somewhat stuck to the sidewall and this dissection took longer than normal. Once the colon was sufficiently reflected, the gonadal vessels and left ureter were identified. These were then dissected cephalad to identify the renal hilum. She had an accessory artery to the lower pole as well as a main single artery and vein. I turned my attention towards the exposure of the cysts. I attempted to mobilize the upper pole of the kidney as this was on the superior aspect and somewhat posterior. I opened [place] fascia using cautery and dissected down to the renal capsule. This was then cleared of fat. The intraoperative ultrasound was then introduced and used to survey this area of the kidney. It was difficult to locate consistently. I continued dissection and mobilization of the upper pole of the kidney. Eventually cystic structures were visualized on the posterior aspect. I dissected around these to try to get an appropriate window to perform the partial nephrectomy. As I was doing this, the cyst was entered. As I was doing this dissection, it became clear that in the current location, I would not be able to reconstruct a partial nephrectomy. I inspected the cyst which appeared overall benign without any solid components. Rather than performing a radical nephrectomy, I was considering performing a decortication to address her pain and obtain tissue for pathologic analysis. The location seemed like it would be amenable for cryoablation if there was any recurrence or need for additional procedure. I had my partner, Dr. Godinez, come into the operating room for a second opinion. We agreed the cyst decortication was reasonable. I also called her sister at this point to discuss this and she expressed assent. Decortication was performed. The roof of the cyst was removed sharply using cautery as needed for hemostasis. This was sent for analysis labeled as left renal cyst 1. Further inspection was performed and there was a branch of possible septation remaining. This was excised as well and sent for additional analysis as left renal cyst 2. There was excellent hemostasis at this point. A layer of Surgicel was applied to the decortication site as well as the hilum. A layer of Tisseel was applied as well. The robot was dedocked. The incisions were then closed. The diversional therapist's assistant site was closed using a deep 0 Vicryl suture for the fascia. All wounds were anesthetized using 0.5% Marcaine. Skin was closed using running subcuticular 4-0 Monocryl for the diversional therapist's assistant site and buried interrupted 4-0 Monocryls for the robot sites. The patient was then awakened from anesthesia and brought to the PACU in stable condition. All sponge and instrument counts were correct at the end of the case. Of note, Barby BRITTON, acted as bedside diversional therapist's assistant for the case, helping with initial positioning, access, retraction, dissection and with closing. I attest to the content of the Intraoperative Record and any orders documented therein. Any exceptions are noted below.
[2024-06-09] MEDS: fentaNYL citrate PF 100 MCG/2 ML VIAL IV PRN (15:57)
[2024-06-09] MEDS: HYDROmorphone INJ 2 MG/ML SYR/VIAL IV PRN (16:17)
[2024-06-09] MEDS: ONDANSETRON INJ 2 MG/ML 2 ML VIAL IV PRN ×2 (16:25→22:03)
--- NOTE | 2024-06-09 16:46 | Anesthesiology Progress Note ---
Date of Service June 09, 2024 Anesthesia Post Procedure Vital Signs Vital Signs: Temp Pulse Pulse Resp BP Pulse Ox O2 Del Method 06/09/24 16:35 100 H 12 123/69 95 Nasal Cannula 06/09/24 16:25 97 H 14 121/68 95 Nasal Cannula 06/09/24 16:10 97 H 13 128/69 97 Nasal Cannula 06/09/24 16:00 93 H 15 137/76 97 Nasal Cannula 06/09/24 15:50 36 C L 101 H 16 141/79 H 96 Nasal Cannula 06/09/24 10:05 36.6 C 67 20 169/84 H 94 Room Air O2 Flow Rate 06/09/24 16:35 2 06/09/24 16:25 2 06/09/24 16:10 4 06/09/24 16:00 4 06/09/24 15:50 4 06/09/24 10:05 Pain Intensity Left Abdomen: Pain Intensity: 6 Transfer of Care Handoff Completed per policy Notes Mental Status: alert / awake / arousable Patient Amnestic to Procedure: Yes Nausea / Vomiting: adequately controlled Pain: adequately controlled Airway Patency, RR, SpO2: stable & adequate BP & HR: stable & adequate Hydration State: stable & adequate Anesthetic Complications: no major complications apparent
[2024-06-09] MEDS: ERYTHROMYCIN OP OINT 5 MG/GM 3.5 GM TUBE OP SCH (16:52)
[2024-06-09] MEDS ORDERED: oxyCODONE HCL IR 5 MG TAB (IMMEDIATE RELEASE) PO PRN (17:02)
[2024-06-09] MEDS ORDERED: MoRPHine SULFATE 2 MG/ML CARP IV PRN (17:02)
[2024-06-09] MEDS: LACTATED RINGER'S 1,000 ML IV SCH (17:16)
[2024-06-09] MEDS: oxyCODONE HCL IR 5 MG TAB (IMMEDIATE RELEASE) PO PRN (17:19)
[2024-06-09] MEDS: ACETAMINOPHEN 325 MG TAB PO SCH (18:14)
[2024-06-09] MEDS: MoRPHine SULFATE 4 MG/ML 1 ML CARP\\VIAL IV PRN (18:18)
[2024-06-09] MEDS: DOCUSATE SODIUM 100 MG CAP PO SCH (19:59)
[2024-06-09] MEDS: traZODone HCL 100 MG TAB PO SCH (20:03)
[2024-06-09] MEDS: HEPARIN SOD 5,000 UNIT/0.5 ML VIAL SQ SCH (20:03)
--- NOTE | 2024-06-10 07:30 | Urology Progress Note ---
Date of Service June 10, 2024 Assessment & Plan (1) Renal cyst: (2) Left flank pain: (3) Headache: Plan This 64-year-old female s/p robot-assisted laparoscopic cyst decortication At this point I suspect nausea and vomiting is an anesthesia effect and hopefully this will resolve over the next couple hours. Will continue Zofran as needed. Headache feels like a typical migraine, we will try her normal home medications. Given the shakes, we will continue perioperative antibiotics although low suspicion for infection. Labs pending this morning. She feels up to it, okay for her to have a diet. Ideally she should try to ambulate a couple times today. Current goals for discharge are for her to be tolerating a diet, pain under control, ambulating. Admission and Anticipated Discharge Date Admission Date: June 09, 2024 Subjective Reports having a headache this morning as well as some shakes. Feels like a migraine to her. Denies any fevers. Not having much abdominal pain. Still having nausea and vomiting Has not been up ambulating yet Physical Exam Physical Exam: Tired appearing, resting in bed Gastrointestinal (Abdomen): Dermabond over incisions Results & Data Vital Signs (Past 12 Hours) Vital Signs Temp Pulse Pulse Resp BP Pulse Ox O2 Del Method 06/10/24 07:18 37.1 C 84 18 138/91 94 Room Air 06/10/24 02:00 36.9 C 83 18 158/80 H 97 Room Air 06/09/24 20:00 Nasal Cannula 06/09/24 20:00 36.9 C 87 16 145/79 H 96 Nasal Cannula O2 Flow Rate 06/10/24 07:18 06/10/24 02:00 06/09/24 20:00 1 06/09/24 20:00 1 PG Care Time/CCT Total # of Minutes Spent Total Time Spent with Patient: Total time spent is greater than 50% in coordination of care (as documented) at patient's floor/unit and/or counseling patient: Coding Level of Care Code None Diagnoses Renal cyst N28.1 Left flank pain R10.9 Headache R51.9
[2024-06-10] MEDS ORDERED: SUMAtriptan succinate 50 MG TAB PO PRN (07:35)
[2024-06-10 07:52] LABS: Basophils # (auto) 0.01 K/uL (0.00-0.20); Basophils % (auto) 0.1 %; Hematocrit (blood only) 39.6 % (37.0-47.0); Hemoglobin 13.4 g/dl (12.0-16.0); Immature Granulocytes # (auto) 0.06 K/uL (0.01-0.20); Immature Granulocytes % (auto) 0.5 %; Lymphocytes # (auto) 0.74 K/uL (1.20-3.40); Lymphocytes % (auto) 6.5 %; Mean Corpuscular Hemoglobin 31.2 pg (25.0-34.0); Mean Corpuscular Hgb Conc 33.8 g/dL (32.0-36.0); Mean Corpuscular Volume 92.3 fL (80.0-100.0); Mean Platelet Volume 9.8 fL (9.4-12.4); Monocytes # (auto) 0.59 K/uL (0.11-0.59); Monocytes % (auto) 5.2 %; Neutrophils % (auto) 87.7 %; Platelet Count 117 K/uL (130-400); RDW Coefficient of Variation 12.7 % (11.5-14.5); Red Blood Count 4.29 M/uL (4.20-5.40)
[2024-06-10 08:48] LABS: BUN Creatinine Ratio 14.4 (10-20); Calcium 9.8 mg/dl (8.6-10.3); Creatinine Clr Calc Pharmacy 51.1 ml/min; Est GFR (Non-African American) 62.2 ml/min; Potassium 4.2 mmol/L (3.5-5.1)
[2024-06-10] MEDS: ceFAZolin 2000MG 2,000 MG/15 ML SYR IV SCH (08:55)
[2024-06-10] MEDS: MEPERIDINE HCL 25 MG/ML CARP/VIAL IV PRN (09:28)
[2024-06-10] MEDS: hydrOXYzine HCl 25 MG TAB PO PRN (09:28)
[2024-06-10] MEDS: ZOLMITRIPTAN 5 MG PO PRN (12:35)
[2024-06-11 07:02] LABS: Basophils # (auto) 0.01 K/uL (0.00-0.20); Basophils % (auto) 0.1 %; Hematocrit (blood only) 38.8 % (37.0-47.0); Hemoglobin 12.8 g/dl (12.0-16.0); Immature Granulocytes # (auto) 0.02 K/uL (0.01-0.20); Immature Granulocytes % (auto) 0.3 %; Lymphocytes # (auto) 1.19 K/uL (1.20-3.40); Mean Corpuscular Hemoglobin 30.8 pg (25.0-34.0); Mean Corpuscular Volume 93.3 fL (80.0-100.0); Monocytes # (auto) 0.46 K/uL (0.11-0.59); Monocytes % (auto) 6.6 %; Neutrophils # (auto) 5.33 K/uL (1.40-6.50); Platelet Count 102 K/uL (130-400); RDW Coefficient of Variation 13.1 % (11.5-14.5); RDW Standard Deviation 45.1 fL (36.4-46.3); Red Blood Count 4.16 M/uL (4.20-5.40); White Blood Count 7.01 K/ul (4.8-10.8)
[2024-06-11 07:35] LABS: BUN Creatinine Ratio 13.9 (10-20); Calcium 8.9 mg/dl (8.6-10.3); Est GFR (African American) 68.6 ml/min; Est GFR (Non-African American) 59.2 ml/min
--- NOTE | 2024-06-11 09:10 | Urology Progress Note ---
Date of Service June 11, 2024 Assessment & Plan (1) Left flank pain: (2) Renal cyst: Plan This 64-year-old female s/p robot-assisted laparoscopic cyst decortication Patient feeling better today and pain is well-controlled Afebrile with stable vitals. Labs stable. Patient is ambulating and tolerating regular diet Stable for discharge home. Patient expressed desire to go home. Admission and Anticipated Discharge Date Admission Date: June 09, 2024 Subjective No acute issues overnight. Afebrile with stable vitals. Labs show a white blood cell count of 7, hemoglobin of 12.8 and creatinine of 1.01. Patient reports feeling well. Mild discomfort at incision sites but reports pain is well-controlled. Expresses desire to go home today. Physical Exam Physical Exam: General: Alert and oriented, no acute distress HEENT: Normocephalic, mucous membranes moist Pulmonary: Nonlabored respirations Abdomen: Nondistended, soft, appropriately tender. Incisions clean dry and intact Extremities: Moves all 4 spontaneously Neuro: No gross deficits Skin: Warm, dry, no rashes noted Results & Data Vital Signs (Past 12 Hours) Vital Signs Temp Pulse Resp BP Pulse Ox O2 Del Method 06/11/24 07:14 37.1 C 89 16 154/89 H 94 Room Air PG Care Time/CCT Total # of Minutes Spent Total Time Spent with Patient: Total time spent is greater than 50% in coordination of care (as documented) at patient's floor/unit and/or counseling patient: Coding Level of Care Code 40438 SUB INP/OBS CARE 2/35MIN Diagnoses Left flank pain R10.9 Renal cyst N28.1
--- NOTE | 2024-06-13 07:49 | Discharge Summary ---
Date of Service June 13, 2024 Admission HPI Per Admitting Provider This is a 64-year-old female followed by urology for Bosniak 2F renal cyst on the left kidney as well as ongoing left-sided flank pain. She underwent laparoscopic robot-assisted cyst decortication on 06/09 and was admitted in good condition postoperatively. Admission Exam Per Admitting Provider Constitutional well developed and well nourished; no acute distress Eyes + anicteric sclerae; pupils not irregular Respiratory normal respiratory effort; no respiratory distress, does not use accessory muscles and no cough Cardiovascular well perfused Gastrointestinal (Abdomen) Inspection/Auscultation: abdomen normal to inspection; abdomen not distended Lower midline scar from prior C-sections and hysterectomy. Musculoskeletal Extremities: extremities normal to inspection Skin normal turgor; no rashes and no lesions Neurologic moves all extremities and awake Psychiatric Orientation: alert and oriented x 3 Principal Diagnosis Left renal cyst Discharge Exam General: Alert and oriented, no acute distress HEENT: Normocephalic, mucous membranes moist Pulmonary: Nonlabored respirations Abdomen: Nondistended, soft, appropriately tender. Incisions clean dry and intact Extremities: Moves all 4 spontaneously Neuro: No gross deficits Skin: Warm, dry, no rashes noted Discharge Data Allergies Allergy/AdvReac Type Severity Reaction Status Date / Time Iodinated Contrast Media Allergy Intermediate ITCHING Verified 06/09/24 10:01 gabapentin AdvReac Unknown hallucinati Verified 06/09/24 10:01 ons Procedures Performed Operation Date: 06/09/24 11:50 Actual Procedures p Robotic Assisted Laparoscopic decortication - Left(Left) - Reji Au MD Hospital Course (1) Left flank pain: (2) Renal cyst: Plan She underwent cyst decortication on 06/09/2024 and was admitted postoperatively. On 06/10 she was having headaches which slightly delayed her recovery. Once these were controlled, she was able to tolerate diet, ambulate and abdominal pain is well-controlled. She was discharged home on 06/11/2024 in good condition. Total Time Total Time Spent Total Time Spent (In Minutes): 15 Discharge Plan Discharge Items Patient Disposition: Home - Self-Care Reason For Visit: Renal Cyst Left Flank Pain Discharge Diagnosis: Renal cyst, left flank pain Activity: Per Instructions section Non-emergency contact: Surgeon and Urologist Call non-emergency contact if: your pain is not controlled, you have a fever, your temperature is above 101, your temperature is above 101.5, your wound has increased redness and your wound has increased drainage Follow-up/Referrals: Leisa Arenas DO [Primary Care Provider] - Reji Au MD [Physician] - Diet: Regular Addtl Attending Provider Instructions: The surgery you had was: Robot-assisted renal cyst decortication Please take all medications as prescribed and keep all follow-ups as scheduled. Please call our office at [phone] with any questions, concerns or need to reschedule appointments for any reason. We are happy to assist you. Medications: Take Tylenol every 6 hours for baseline pain control If you are prescribed narcotics such as oxycodone, please take it according to the instructions on the label. Activity/Recovering at home: We recommend having someone with you for the first few days after surgery to help care for you. It is okay to shower tomorrow. Please avoid swimming, bathing or using hot tub until incisions are well healed. Avoid driving until you are not requiring pain medication any further. Walk at least a few times a day. Increase your distance, as you feel able. Stairs in your home are okay. Please avoid strenuous or sexual activity until your follow-up. No lifting anything more than 10 pounds for 6 to 8 weeks Use a stool softener (i.e. Colace) to prevent constipation, especially the first two weeks post operatively. You should not be straining/pushing to have a bowel movement. Follow-up: We will have you come to the urology office in 3 to 4 weeks for a wound check. Call [facility] at [phone] if you experience: Chest pain or trouble breathing (call 211 or go to the hospital). Fever of 101F or higher Symptoms of infection at incision site, including redness or swelling, warmth, or bad-smelling drainage Pain that is not controlled with medicines Pending Studies at Discharge: No Stand-Alone Forms: My [facility] [employer] Medications and DC Order Prescriptions: Continued cyanocobalamin (vitamin B-12) 1,000 mcg/mL solution 1,000 mcg IM Q30D Qty: 25 5RF (DME) Shower Chair Misc See Rx Instructions .Route Qty: 1 0RF Rx Instructions: As directed zolmitriptan [Zomig] 5 mg tablet 5 mg PO UD PRN (Reason: migraines) Qty: 9 1RF Rx Instructions: take 1 tab at onset of headache; if no relief, may repeat 1 tab after at least 2 hrs; max = 2 tabs/24 hrs PO estradiol [Estrace] 0.01 % (0.1 mg/gram) cream 1 g vaginal 3XWK Qty: 42.5 3RF nitrofurantoin monohyd/m-cryst [Macrobid] 100 mg capsule 100 mg PO Q12H 7 Days Qty: 14 0RF Rx Instructions: must administer with a meal/food trazodone 100 mg tablet 300 mg PO HS Qty: 270 3RF Hold Instructions: On Cipro oxycodone-acetaminophen 5-325 mg tablet 1 tab PO UD Rx Instructions: up to 5x per day Discharge Orders: Discharge Order (Routine); Ordered 06/11/24 Ordered By: Rafi Sauer Admission Data Admit Date/Time: 06/09/24 16:02 Attending Provider: Reji Au Admit Provider: Reji Au Primary Care Provider: Leisa Arenas Other Interventions: Discharge Summary Assessment (RN) Last Done: 06/11/24 10:13 Coding Level of Care Code INP/OBS EV SAME DAY LV 1,45MIN Diagnoses Left flank pain R10.9 Renal cyst N28.1
== END 2024-06-11 11:30 | disposition home or self-care (01) | DRG 661 ==
LOC: ASU 09:35 → 3N 16:02